=== PATIENT | male | born 1935 | race Caucasian/White ===

== ENCOUNTER 2016-07-02 04:43 | Inpatient (IN) | payer OTHER, MEDICARE ==
[~2016-07-02] VITALS: Ht 182.9 cm; Wt 95.0 kg
[2016-07-02] VITALS (20 sets, daily range): BP systolic 122–176; BP diastolic 78–98; PULSE 92–116; RESP 18–32; TEMP 97.2–98.8; O2SAT 91–96
[~2016-07-02 04:43] MED LIST: 1-ME1LIQ PO; ALBU0.086 INH; ASPI1TAB7 PO; ATOR20TA42 PO; CO-QCAP; FURO20TA PO; I-VITAB2; IBUP-1116 PO; OMEG5CAP PO; TAB-TAB PO; TEST200I13 IM; VITA-13 PO; VITA100020 PO
[2016-07-02] MEDS ORDERED: FUROSEMIDE 40 MG/4 ML VIAL IVP ONE (05:00)
[2016-07-02] MEDS ORDERED: SODIUM CHLORIDE 0.9% FLUSH 10 ML FLUSH IVF PRN (05:00)
[2016-07-02] MEDS ORDERED: methylPREDNISolone SOD SUCC 125 MG/2 ML VIAL IVP ONE (05:00)
[2016-07-02] MEDS: RESP: ALBUTEROL 2.5 MG/IPRATROPIUM 0.5 MG NEB (SCH) INH (05:08)
[2016-07-02] MEDS ORDERED: CO-QCAP PO (05:13)
[2016-07-02] MEDS ORDERED: FURO20TA PO (05:13)
[2016-07-02] MEDS ORDERED: AMLO10TA2 PO (05:13)
[2016-07-02] MEDS ORDERED: VITA100021 SL (05:13)
[2016-07-02] MEDS ORDERED: ASPI1TAB69 PO (05:13)
[2016-07-02] MEDS ORDERED: I-VITAB2 (05:13)
[2016-07-02] MEDS ORDERED: ATOR20TA15 PO (05:13)
[2016-07-02] MEDS ORDERED: TEST200I12 IM (05:13)
[2016-07-02] MEDS ORDERED: OMEG5CAP PO (05:13)
[2016-07-02] MEDS ORDERED: IBUP800T23 PO (05:13)
[2016-07-02] MEDS ORDERED: MULTTAB23 (05:13)
[2016-07-02] MEDS ORDERED: VITA200012 PO (05:13)
--- NOTE | 2016-07-02 05:24 | RADRPT ---
EXAM DATE/TIME: 07/02/2016 04:56 [place] COMPARISON: No previous studies available for comparison. INDICATIONS : Shortness of breath. MEDICAL HISTORY : Congestive heart failure. SURGICAL HISTORY : None. ENCOUNTER: Initial ACUITY: 1 day PAIN SCORE: 0/10 LOCATION: chest FINDINGS: Portable AP view of the chest demonstrates a normal-sized cardiac silhouette with calcification of th e aorta. There is airspace consolidation in the lower lung zones bilaterally. No pneumothorax or defi nite pleural effusion is seen. Bones and soft tissues demonstrate no acute finding. There are degener ative changes of the thoracic spine. CONCLUSION: Bilateral lower lung zone airspace consolidation. Although this appearance is nonspecific, pulmonary edema could have this appearance in the appropriate clinical setting. Raoul Gan MD on July 02, 2016 at 5:21 Board Certified Radiologist. This report was verified electronically.
[2016-07-02 05:25] LABS: BLOOD GAS BASE EXCESS -3.7 mmol/L (-2-2); BLOOD GAS CARBOXYHEMOGLOBIN 1.5 % (0-4); BLOOD GAS HCO3 20 mmol/L (22-26); BLOOD GAS METHEMOGLOBIN 0.8 % (0-2); BLOOD GAS O2 HGB SATURATION 91 % (90-100); BLOOD GAS OXYGEN CONTENT 21.1 Vol % (12.0-20.0); BLOOD GAS PCO2 34 mmHg (38-42); BLOOD GAS PO2 67 mmHG (61-120); BLOOD GAS TOTAL HGB 16.6 G/DL (12.0-16.0); CRITICAL VALUE NO; OXYGEN DEVICE BiPAP; TEMP CORR TO 98.6
[2016-07-02 05:26] LABS: DRAW SITE RT RADIAL; FIO2 40 %; NUMBER OF ARTERIAL PUNCTURES 1; STAT YES; VENT SETTINGS IPAP12/EPAP6
[2016-07-02 05:36] LABS: AUTOMATED NEUTROPHIL # 5.3 TH/MM3 (1.8-7.7); BASOPHIL # 0.1 TH/MM3 (0-0.2); BASOPHIL % 0.8 % (0.0-2.0); EOSINOPHIL # 0.4 TH/MM3 (0-0.4); EOSINOPHIL % 4.4 % (0.0-4.0); HEMATOCRIT 50.3 % (39.0-51.0); HEMO FLAGS DIFF FINAL; LYMPH % 24.3 % (9.0-44.0); LYMPHOCYTE # 2.1 TH/MM3 (1.0-4.8); MEAN CELL VOLUME 92.9 FL (80.0-100.0); MEAN CORPUSCULAR HEMOGLOBIN 31.9 PG (27.0-34.0); MEAN CORPUSCULAR HGB CONC 34.3 % (32.0-36.0); MONO % 9.7 % (0.0-8.0); NEUT % 60.8 % (16.0-70.0); PLATELET COUNT 154 TH/MM3 (150-450); RED BLOOD COUNT 5.41 MIL/MM3 (4.50-5.90); RED CELL DISTRIBUTION WIDTH 15.4 % (11.6-17.2); WHITE BLOOD COUNT 8.7 TH/MM3 (4.0-11.0)
[2016-07-02 05:48] LABS: APTT (PATIENT) 35.9 SEC (24.3-30.1); PROTHROMBIN TIME - PATIENT 11.5 SEC (9.8-11.6)
[2016-07-02 05:57] LABS: ANION GAP 11 MEQ/L (5-15); BICARBONATE 21.7 MEQ/L (21.0-32.0); BLOOD UREA NITROGEN 15 MG/DL (7-18); CHLORIDE 108 MEQ/L (98-107); GLOMERULAR FILTRATION RATE 66 ML/MIN (>89); POTASSIUM 3.4 MEQ/L (3.5-5.1); SODIUM (NA) 141 MEQ/L (136-145)
[2016-07-02 06:00] LABS: CREATINE KINASE 154 U/L (39-308)
[2016-07-02 06:12] LABS: CKMB 2.8 NG/ML (0.5-3.6)
--- NOTE | 2016-07-02 06:30 | PD ---
HPI Chief Complaint: Respiratory Distress Time Seen by Provider: 04:57 Travel History International Travel<30 days: No Contact w/Intl Traveler<30days: No Traveled to known affect area: No History of Present Illness HPI 81yo M with PMH of CHF, COPD and rheumatic heart disease presents to the ED with c/o acute sob since 4am today. Pt arrived and was hypoxic in the 80s on 2 L NC and placed immediately on a BIPAP. Pt felt better after BIPAP. Denies any fever, chest pain, n/v, abdominal pain, weakness or numbness. Pt's credit collector is Dr. North. PFSH Past Medical History Cardiovascular Problems: Yes (needs mitral valve replaced) High Cholesterol: Yes Congestive Heart Failure: Yes COPD: Yes Diminished Hearing: Yes Hypertension: Yes Inguinal Hernia: Yes (hernia repair) Medical other: Yes (rheumatic fever) Immunizations Current: Yes Social History Alcohol Use: Yes (Daily) Tobacco Use: No Substance Use: No Allergies-Medications (Allergen,Severity, Reaction): Coded Allergies: No Known Allergies (Unverified , 07/02/16) Reported Meds & Prescriptions Reported Meds & Active Scripts Active Reported Ciprofloxacin (Ciprofloxacin HCl) 500 Mg Tab 500 Mg PO BID I-Elva (Multiple Vitamins W/ Minerals) 1 Tab Tab Co-Q 10 [place]-3 Fish Oil (Coenzyme O01-Qpsl Oil-Vitamin) 1 Cap Vitamin D3 (Cholecalciferol) 2,000 Unit Tab 2,000 Units PO DAILY Vitamin B-12 (Cyanocobalamin) 1,000 Mcg Subl 1,000 Mcg SL DAILY Testosterone Cypionate Inj (Testosterone Cypionate) 200 Mg/Ml Inj 200 Mg IM Q10D Multi For Him 50+ (Multiple Vitamins W/ Minerals) 1 Tab Tab Furosemide 20 Mg Tab 20 Mg PO DAILY Fish Oil 1200 mg ([place]-3 Fatty Acids) 1 Cap Cap 1,200 Mg PO DAILY Atorvastatin (Atorvastatin Calcium) 20 Mg Tab 20 Mg PO HS Aspirin 81 Mg Tabdr 81 Mg PO DAILY Amlodipine (Amlodipine Besylate) 10 Mg Tab 10 Mg PO DAILY Review of Systems Except as stated in HPI: all other systems reviewed are Neg Physical Exam Narrative GENERAL: 81yo M in moderate distress. SKIN: Focused skin assessment warm/dry. HEAD: Atraumatic. Normocephalic. EYES: Pupils equal and round. No scleral icterus. No injection or drainage. ENT: No nasal bleeding or discharge. Mucous membranes pink and moist. NECK: Trachea midline. No JVD. CARDIOVASCULAR: Regular rate and rhythm. No murmur appreciated. RESPIRATORY: + accessory muscle use. Coarse breath sounds bilaterally. GASTROINTESTINAL: Abdomen soft, non-tender, nondistended. Hepatic and splenic margins not palpable. MUSCULOSKELETAL: No obvious deformities. No clubbing. No cyanosis. +Lower ext edema. NEUROLOGICAL: Awake and alert. No obvious cranial nerve deficits. Motor grossly within normal limits. Normal speech. PSYCHIATRIC: Appropriate mood and affect; insight and judgment normal. Data Data Last Documented VS Vital Signs Date Time Temp Pulse Resp B/P Pulse Ox O2 Delivery O2 Flow Rate FiO2 07/02/16 05:15 BiPAP 07/02/16 05:11 93 40 07/02/16 04:51 3 07/02/16 04:51 97.2 113 26 173/98 Orders Complete Blood Count With Diff (07/02/16 04:57) Basic Metabolic Panel (Bmp) (07/02/16 04:57) B-Type Natriuretic Peptide (07/02/16 04:57) Act Partial Throm Time (Ptt) (07/02/16 04:57) Prothrombin Time / Inr (Pt) (07/02/16 04:57) Ckmb (Isoenzyme) Profile (07/02/16 04:57) Troponin I (07/02/16 04:57) Arterial Blood Gas (Abg) (07/02/16 04:57) Influenzae A/B Antigen (07/02/16 04:57) Blood Culture (07/02/16 04:57) Iv Access Insert/Monitor (07/02/16 04:57) Ecg Monitoring (07/02/16 04:57) Oximetry (07/02/16 04:57) Oxygen Administration (07/02/16 04:57) Chest, Single Ap (07/02/16 04:57) Sodium Chloride 0.9% Flush (Ns Flush) (07/02/16 05:00) Furosemide Inj (Lasix Inj) (07/02/16 05:00) Methylprednisolone So Succ Inj (Solumedr (07/02/16 05:00) Albuterol-Ipratropium Neb (Duoneb Neb) (07/02/16 05:00) Resp Bipap / Cpap Non Invas Vt (07/02/16 04:57) CKMB (07/02/16 04:45) CKMB% (07/02/16 04:45) Admit Order (Ed Use Only) (07/02/16 06:34) Admit To Inpatient (07/02/16 ) Vital Signs (Adult) Q4H (07/02/16 06:32) Activity Oob With Assistance (07/02/16 06:32) Corset Maker / Telemetry .CONTINUOUS (07/02/16 06:32) Intake + Output BRENNEN.QSHIFT (07/02/16 06:32) Diet Heart Healthy (07/02/16 Breakfast) Sodium Chloride 0.9% Flush (Ns Flush) (07/02/16 06:45) Sodium Chloride 0.9% Flush (Ns Flush) (07/02/16 09:00) Basic Metabolic Panel (Bmp) (07/03/16 06:00) Complete Blood Count With Diff (07/03/16 06:00) Creatine Kinase (Cpk) (07/02/16 07:00) Creatine Kinase (Cpk) (07/02/16 13:00) Troponin I (07/02/16 07:00) Troponin I (07/02/16 13:00) Electrocardiogram (07/02/16 07:00) Pt Request For Service (07/02/16 06:32) Case Management Consult (07/02/16 06:32) Heparin Inj (Heparin Inj) (07/02/16 08:00) Naloxone Inj (Narcan Inj) (07/02/16 06:45) Inpatient Certification (07/02/16 ) Labs Laboratory Tests Test 07/02/16 07/02/16 07/02/16 01:02 04:45 05:18 White Blood Count 8.7 TH/MM3 Red Blood Count 5.41 MIL/MM3 Hemoglobin 17.2 GM/DL Hematocrit 50.3 % Mean Corpuscular Volume 92.9 FL Mean Corpuscular Hemoglobin 31.9 PG Mean Corpuscular Hemoglobin 34.3 % Concent Red Cell Distribution Width 15.4 % Platelet Count 154 TH/MM3 Mean Platelet Volume 7.8 FL Neutrophils (%) (Auto) 60.8 % Lymphocytes (%) (Auto) 24.3 % Monocytes (%) (Auto) 9.7 % Eosinophils (%) (Auto) 4.4 % Basophils (%) (Auto) 0.8 % Neutrophils # (Auto) 5.3 TH/MM3 Lymphocytes # (Auto) 2.1 TH/MM3 Monocytes # (Auto) 0.8 TH/MM3 Eosinophils # (Auto) 0.4 TH/MM3 Basophils # (Auto) 0.1 TH/MM3 CBC Comment DIFF FINAL Differential Comment B-Type Natriuretic Peptide 381 PG/ML Prothrombin Time 11.5 SEC Prothromb Time International 1.0 RATIO Ratio Activated Partial 35.9 SEC Thromboplast Time Sodium Level 141 MEQ/L Potassium Level 3.4 MEQ/L Chloride Level 108 MEQ/L Carbon Dioxide Level 21.7 MEQ/L Anion Gap 11 MEQ/L Blood Urea Nitrogen 15 MG/DL Creatinine 1.07 MG/DL Estimat Glomerular Filtration 66 ML/MIN Rate Random Glucose 88 MG/DL Calcium Level 8.8 MG/DL Total Creatine Kinase 154 U/L Creatine Kinase MB 2.8 NG/ML Troponin I LESS THAN 0.02 NG/ML Blood Gas Puncture Site RT RADIAL Blood Gas Patient Temperature 98.6 Blood Gas HCO3 20 mmol/L Blood Gas Base Excess -3.7 mmol/L Blood Gas Oxygen Saturation 91 % Arterial Blood pH 7.39 Arterial Blood Partial 34 mmHg Pressure CO2 Arterial Blood Partial 67 mmHG Pressure O2 Arterial Blood Oxygen Content 21.1 Vol % Arterial Blood 1.5 % Carboxyhemoglobin Arterial Blood Methemoglobin 0.8 % Blood Gas Hemoglobin 16.6 G/DL Oxygen Delivery Device BiPAP Blood Gas Ventilator Setting IPAP12/EPAP6 Blood Gas Inspired Oxygen 40 % MDM Medical Decision Making Medical Screen Exam Complete: Yes Emergency Medical Condition: Yes Differential Diagnosis Acute pulmonary edema vs. COPD exacerbation vs. Pneumonia vs. ACS Narrative Course 81yo M with acute onset of sob today. Crackles on exam with bilateral lower ext edema. Impression is acute pulmonary edema. BNP 381. No leukocytosis. CXR showed pulmonary edema. Pt was immediately placed on BIPAP and has been doing well on BIPAP. Discussed with Dr. Chen and pt will be accepted to her service in the ICU. Critical Care Narrative Aggregate critical care time was 40 minutes. Time to perform other separately billable procedures was not included in the critical care time. My time did not include minutes spent treating any other patients simultaneously or on activities that did not directly contribute to the patient's treatment. The services I provided to this patient were to treat and/or prevent clinically significant deterioration that could result in: cardiovascular collapse or . I provided critical care services requiring my management, as noted below: Chart data review, documentation time, medication orders and management, vital sign assessments/reviewing monitor data, ordering and reviewing lab tests, ordering and interpreting/reviewing x- rays and diagnostic studies, care of the patient and discussion of the patient with the admitting physicians. Diagnosis Primary Impression: Acute pulmonary edema Admitting Information Admitting Physician Requests: Admit Scripts Metoprolol Tartrate 25 Mg Tab12.5 Mg PO Q12HR 30 Days Ref 0 Prov:Bhavin Agudelo MD 07/04/16 Potassium Chloride ER 10 Meq Cap10 Meq PO DAILY #30 CAP Ref 0 Prov:Bhavin Agudelo MD 07/04/16 Danielle Ortiz DO Jul 02, 2016 06:30
[2016-07-02] MEDS ORDERED: NALOXONE HCL 0.4 MG/ML AMP IV PRN (06:45)
[2016-07-02] MEDS ORDERED: POTASSIUM CHLORIDE 20 MEQ CONTROLLED RELEASE TAB PO ONE (06:45)
[2016-07-02] MEDS ORDERED: SODIUM CHLORIDE 0.9% FLUSH 10 ML FLUSH IV FLUSH PRN (06:45)
--- NOTE | 2016-07-02 08:02 | HHI.HP ---
[facility] Primary Care Physician Rena Lynne MD Admission Diagnosis CHF exacerbation Diagnoses: (1) CHF exacerbation Diagnosis: Principal Chief Complaint: sob Travel History International Travel<30 Days: No Contact w/Intl Traveler <30 Da: No Traveled to Known Affected Are: No History of Present Illness patient is a 81 y/o male with history of CHF, hypertension, rheumatic fever , COPD who presented to ER with sob. he says that he's had sob over the past one week which he initially related to common cold. he says that he woke up in the morning with worsening sob. he denies any productive cough, chest pain, fever or chills. but he reports ten-pound weight gain over the past two weeks.he says that he's being worked up for ' a leaky valve'. at the time of presentation to ER he was started on BiPaP. at the time of my evaluation he was in no acute distress, stating that his sob had already improved. Review of Systems Constitutional: DENIES: Fever, Weight loss, Chills, Night Sweats Eyes: DENIES: Blurred vision, Diplopia, Vision loss, Double Vision Ears, nose, mouth, throat: DENIES: Tinnitus, Vertigo, Throat pain, Epistaxis Respiratory: COMPLAINS OF: Shortness of breath, DENIES: Apneas, Cough, Snoring , Wheezing, Hemoptysis, Sputum production Cardiovascular: DENIES: Chest pain, Palpitations, Syncope, Dyspnea on Exertion , PND, Lower Extremity Edema, Orthopnea, Claudication Gastrointestinal: DENIES: Abdominal pain, Black stools, Bloody stools, Constipation, Diarrhea, Nausea, Vomiting, Difficulty Swallowing, Anorexia Genitourinary: DENIES: Urinary frequency, Urgency, Hematuria, Dysuria Musculoskeletal: DENIES: Joint pain, Muscle aches, Stiffness, Joint Swelling Integumentary: DENIES: Rash Neurologic: DENIES: Abnormal gait, Headache, Localized weakness, Paresthesias, Seizures, Speech Problems, Tremor, Poor Balance Psychiatric: DENIES: Anxiety, Confusion, Mood changes, Depression, Hallucinations, Agitation, Suicidal Ideation, Homicidal Ideation, Delusions Past Family Social History Past Medical History rheumatic fever hypertension CHF dyslipidemia COPD Past Surgical History foot surgery cervical spine surgery Reported Medications Ibuprofen 800 Mg Tab 800 Mg PO BID PRN I-Elva (Multiple Vitamins W/ Minerals) 1 Tab Tab Co-Q 10 [place]-3 Fish Oil (Coenzyme U45-Ydqu Oil-Vitamin) 1 Cap Vitamin D3 (Cholecalciferol) 2,000 Unit Tab 2,000 Units PO DAILY Vitamin B-12 (Cyanocobalamin) 1,000 Mcg Subl 1,000 Mcg SL DAILY Testosterone Cypionate Inj (Testosterone Cypionate) 200 Mg/Ml Inj 200 Mg IM Q10D Multi For Him 50+ (Multiple Vitamins W/ Minerals) 1 Tab Tab Furosemide 20 Mg Tab 20 Mg PO DAILY Fish Oil 1200 mg ([place]-3 Fatty Acids) 1 Cap Cap 1,200 Mg PO DAILY Atorvastatin (Atorvastatin Calcium) 20 Mg Tab 20 Mg PO HS Aspirin 81 Mg Tabdr 81 Mg PO DAILY Amlodipine (Amlodipine Besylate) 10 Mg Tab 10 Mg PO DAILY Allergies: Coded Allergies: No Known Allergies (Unverified , 07/02/16) Active Ordered Medications Current Medications Sodium Chloride (NS Flush) 2 ml UNSCH PRN IVF FLUSH AFTER USING IV ACCESS Last administered on 07/02/16 06:04; Start 07/02/16 at 05:00; Stop 07/02/16 at 06:37 ; Status DC Furosemide (Lasix Inj) 40 mg ONCE ONCE IVP Last administered on 07/02/16 06: 04; Start 07/02/16 at 05:00; Stop 07/02/16 at 05:01; Status DC Methylprednisolone Sodium Succinate (SoluMEDROL INJ) 125 mg ONCE ONCE IVP Last administered on 07/02/16 06:04; Start 07/02/16 at 05:00; Stop 07/02/16 at 05:01; Status DC Albuterol/ Ipratropium (Duoneb Neb) 1 ampule Q15M INH Last administered on 07/02 05:08; Start 07/02/16 at 05:00; Stop 07/02/16 at 05:31; Status DC Sodium Chloride (NS Flush) 2 ml UNSCH PRN IV FLUSH FLUSH AFTER USING IV ACCESS ; Start 07/02/16 at 06:45 Sodium Chloride (NS Flush) 2 ml BID IV FLUSH ; Start 07/02/16 at 09:00 Heparin Sodium (Porcine) (Heparin Inj) 5,000 units Q8H SQ ; Start 07/02/16 at 08 :00 Naloxone HCl (Narcan Inj) 0.4 mg UNSCH PRN IV SEE LABEL COMMENTS; Start at 06:45 Furosemide (Lasix Inj) 40 mg BID@09,18 IV PUSH ; Start 07/02/16 at 09:00 Potassium Chloride (KCl) 40 meq ONCE ONCE PO ; Start 07/02/16 at 06:45; Stop at 06:46; Status DC Family History heart disease in father and mother. Social History drinks daily- quit smoking years ago. Physical Exam Vital Signs Vital Signs Date Time Temp Pulse Resp B/P Pulse Ox O2 Delivery O2 Flow Rate FiO2 07/02/16 05:15 BiPAP 07/02/16 05:11 93 40 07/02/16 04:51 91 Nasal Cannula 3 07/02/16 04:51 97.2 113 26 173/98 93 BiPAP 07/02/16 04:47 116 32 176/94 91 Physical Exam GENERAL: This is a well-nourished, well-developed patient, in no apparent distress. SKIN: No rashes, ecchymoses or lesions. Cool and dry. HEAD: Atraumatic. Normocephalic. No temporal or scalp tenderness. EYES: Pupils equal round and reactive. Extraocular motions intact. No scleral icterus. No injection or drainage. ENT: Nose without bleeding, purulent drainage or septal hematoma. Throat without erythema, tonsillar hypertrophy or exudate. Uvula midline. Airway patent. NECK: Trachea midline. No JVD or lymphadenopathy. Supple, nontender, no meningeal signs. CARDIOVASCULAR: Regular rate and rhythm without murmurs, gallops, or rubs. RESPIRATORY: diminished air entry in bases. GASTROINTESTINAL: Abdomen soft, non-tender, nondistended. No hepato-splenomegaly , or palpable masses. No guarding. MUSCULOSKELETAL: Extremities without clubbing, cyanosis, or edema. No joint tenderness, effusion, or edema noted. No calf tenderness. Negative Homans sign bilaterally. NEUROLOGICAL: Awake and alert. Cranial nerves II through XII intact. Motor and sensory grossly within normal limits. Five out of 5 muscle strength in all muscle groups. Normal speech. Laboratory Laboratory Tests Test 307/02/16 07/02/16 01:02 04:45 05:18 White Blood Count 8.7 Red Blood Count 5.41 Hemoglobin 17.2 Hematocrit 50.3 Mean Corpuscular Volume 92.9 Mean Corpuscular Hemoglobin 31.9 Mean Corpuscular Hemoglobin 34.3 Concent Red Cell Distribution Width 15.4 Platelet Count 154 Mean Platelet Volume 7.8 Neutrophils (%) (Auto) 60.8 Lymphocytes (%) (Auto) 24.3 Monocytes (%) (Auto) 9.7 Eosinophils (%) (Auto) 4.4 Basophils (%) (Auto) 0.8 Neutrophils # (Auto) 5.3 Lymphocytes # (Auto) 2.1 Monocytes # (Auto) 0.8 Eosinophils # (Auto) 0.4 Basophils # (Auto) 0.1 CBC Comment DIFF FINAL Differential Comment B-Type Natriuretic Peptide 381 Prothrombin Time 11.5 Prothromb Time International 1.0 Ratio Activated Partial 35.9 Thromboplast Time Sodium Level 141 Potassium Level 3.4 Chloride Level 108 Carbon Dioxide Level 21.7 Anion Gap 11 Blood Urea Nitrogen 15 Creatinine 1.07 Estimat Glomerular Filtration 66 Rate Random Glucose 88 Calcium Level 8.8 Total Creatine Kinase 154 Creatine Kinase MB 2.8 Troponin I LESS THAN 0.02 Blood Gas Puncture Site RT RADIAL Blood Gas Patient Temperature 98.6 Blood Gas HCO3 20 Blood Gas Base Excess -3.7 Blood Gas Oxygen Saturation 91 Arterial Blood pH 7.39 Arterial Blood Partial 34 Pressure CO2 Arterial Blood Partial 67 Pressure O2 Arterial Blood Oxygen Content 21.1 Arterial Blood 1.5 Carboxyhemoglobin Arterial Blood Methemoglobin 0.8 Blood Gas Hemoglobin 16.6 Oxygen Delivery Device BiPAP Blood Gas Ventilator Setting IPAP12/EPAP6 Blood Gas Inspired Oxygen 40 Date/Time Procedure Status Source Growth 07/02/16 06:00 Influenza Types A,B Antigen (DEVI) Ordered Nasal Aspirate Pending 07/02/16 05:20 Aerobic Blood Culture Received Blood Peripheral Pending 07/02/16 05:20 Anaerobic Blood Culture Received Blood Peripheral Pending Result Diagram: 07/02/16 0102 07/02/16 0445 Imaging Last Impressions Chest X-Ray 07/02/16 0457 Signed Impressions: Service Date/Time: Saturday, July 02, 2016 04:56 - CONCLUSION: Bilateral lower lung zone airspace consolidation. Although this appearance is nonspecific, pulmonary edema could have this appearance in the appropriate clinical setting. Raoul Gan MD Assessment and Plan Assessment and Plan A/P - acute on chronic CHF continue with IV lasix- I/O monitoring- had an echo two weeks ago- check serial cardiac enzymes- cardiology consulted keep on oxygen to keep O2 sat > 90% -COPD; neb treatment as needed -hypertension/ dyslipidemia; resume home meds; amlodipine/ statin -DVT prophylaxis with subq heparin Discussed Condition With the patient and the family. Physician Certification 2 Midnight Certification Type: Admission for Inpatient Services Order for Inpatient Services The services are ordered in accordance with Medicare regulations or non- Medicare payer requirements, as applicable. In the case of services not specified as inpatient-only, they are appropriately provided as inpatient services in accordance with the 2-midnight benchmark. Estimated LOS (days): 2 days is the estimated time the patient will need to remain in the hospital, assuming treatment plan goals are met and no additional complications. Post-Hospital Plan: Home Health Problem Qualifiers (1) CHF exacerbation: Qualified Code: I50.9 - Acute on chronic congestive heart failure, unspecified congestive heart failure type Bhavin Agudelo MD Jul 02, 2016 08:02
[2016-07-02] MEDS ORDERED: ENALAPRILAT 1.25 MG/ML VIAL IV PUSH PRN (08:15)
[2016-07-02] MEDS ORDERED: RESP: ALBUTEROL 2.5 MG/IPRATROPIUM 0.5 MG NEB (PRN) NEB (08:15)
[2016-07-02] MEDS: HEPARIN SODIUM - SQ 10,000 UNITS/ML VIAL SQ SCH ×3 (08:52→23:45)
[2016-07-02] MEDS: SODIUM CHLORIDE 0.9% FLUSH 10 ML FLUSH IV FLUSH SCH ×2 (09:52→20:48)
[2016-07-02] MEDS: ASPIRIN EC 81 MG TABEC PO SCH (09:53)
[2016-07-02] MEDS: POTASSIUM CHLORIDE 20 MEQ CONTROLLED RELEASE TAB PO SCH ×2 (09:53→20:48)
[2016-07-02] MEDS: FUROSEMIDE 40 MG/4 ML VIAL IV PUSH SCH ×2 (09:54→17:21)
--- NOTE | 2016-07-02 11:06 | MB ---
cc: NAOMIE JOHNSON MD DATE OF CONSULTATION 07/02/2016 REASON FOR CONSULTATION CHF HISTORY OF PRESENT ILLNESS Mr. Hutchinson is an 81-year-old patient who does have a history of hypertension, hyperlipidemia and aortic stenosis. He was actually seen by me in the office yesterday after a recent echocardiogram which showed rapid progression of his aortic stenosis. His mean gradient in 2014 was 10, in December 2015 was 25 and 24 on June 16, 2016 was up to 37 mmHg. He has noted that he has had progressive symptoms and one month ago was able to walk four miles a day. Over the last month, he is now having difficulties walking in the grocery store. He has also had sinus infection which apparently has been difficult to treat. He was subsequently referred to Dr. Cuevas for an AVR workup. Last night, the patient reports that he woke up at 04:00 a.m. with profound shortness of breath and subsequently came into the emergency room. He was found to be in mild heart failure and has been diuresed. Cardiology was subsequently consulted. CLINICAL HISTORY Significant for: 1. Hypertension 2. Hyperlipidemia 3. Carotid artery plaque 4. Aortic stenosis 5. LVH 6. Mitral regurgitation OUTPATIENT MEDICATIONS Include: 1. Aspirin 2. Amlodipine 10 mg daily 3. Atorvastatin 20 mg a day 4. Lasix 20 mg a day PAST SURGICAL HISTORY Includes: 1. Neck surgery 2. Renal transplantation SOCIAL HISTORY The patient does have occasional alcohol. He is a nonsmoker. REVIEW OF SYSTEMS The patient has had some nasal drainage, other than this and what is mentioned in the HPI, all 12 systems are negative. PHYSICAL EXAM On physical examination, the initial vital signs showed a temperature of 97.2, heart rate of 113, respiratory rate of 26 and a blood pressure of 173/98. GENERAL: He is an overweight man who is in no apparent distress. NECK: His neck is free from JVD. LUNGS: The lungs are bit decreased, but clear to auscultation. CARDIOVASCULAR: On examination, he is tachycardiac and there is a systolic aortic stenosis murmur. Echocardiogram from 06/16/16 shows a normal LV function with an EF of 52%. There was a mild LV dilation with it being 59 mm in diastole. There was [id number] mitral regurgitation. LABORATORY VALUES Significant for a troponin of less 0.02 and BNP of 381. His white count was 8.7. Chest x-ray shows bilateral air space consolidation which is felt to be nonspecific and could represent pulmonary edema. IMPRESSION Acute diastolic CHF likely from his aortic stenosis. I do agree with aggressive medical management at this point. A Beta buck will be added. Severe aortic stenosis - The patient does meet the criteria for aortic valve replacement at this point. He, however, will need to be optimized and specifically will need to have his sinus infection addressed as he would be a suboptimal candidate at this time with an infection. Sinus infection - The patient does follow with Dr. Monson will be consulted as the patient's family is indicating to me that he was going to request a CT of the sinuses to further clarify this process. Naomie Johnson M.D. PAVEL/DJAbida /9:49 AM /10:49 AM JARRET
[2016-07-02] MEDS ORDERED: CIPR500T2 PO (11:17)
[2016-07-02] MEDS: CIPROFLOXACIN 500 MG TAB PO SCH ×2 (15:38→20:48)
[2016-07-02] MEDS: guaiFENesin E.R. 600 MG TAB PO PRN (15:40)
--- NOTE | 2016-07-02 16:22 | EKG ---
Date Performed: 07/02/2016 Time Performed: 04:47:49 PTAGE: 81 years EKG: SINUS TACHYCARDIA MARKED LEFT AXIS DEVIATION LEFT BUNDLE BRANCH BLOCK ABNORMAL ECG INTERPRE TATION BASED ON A DEFAULT AGE OF 40 YEARS NO PREVIOUS TRACING DOCTOR: Jack Nguyen Interpretating Date/Time 07/02/2016 16:19:57
[2016-07-02] MEDS: METOPROLOL TARTRATE 25 MG TAB PO SCH (20:48)
[2016-07-02] MEDS: ATORVASTATIN 20 MG TAB PO SCH (20:48)
[2016-07-02] MEDS ORDERED: CIPROFLOXACIN 500 MG TAB PO SCH (21:00)
[2016-07-03] VITALS (26 sets, daily range): BP systolic 95–132; BP diastolic 58–86; PULSE 64–105; RESP 17–18; TEMP 97.5–98.6; O2SAT 93–96
[2016-07-03 06:23] LABS: BICARBONATE 26.7 MEQ/L (21.0-32.0); POTASSIUM 3.9 MEQ/L (3.5-5.1)
[2016-07-03 07:00] LABS: AUTOMATED NEUTROPHIL # 5.6 TH/MM3 (1.8-7.7); BASOPHIL % 0.1 % (0.0-2.0); HEMATOCRIT 47.6 % (39.0-51.0); HEMO FLAGS DIFF FINAL; LYMPH % 10.1 % (9.0-44.0); LYMPHOCYTE # 0.7 TH/MM3 (1.0-4.8); MEAN CELL VOLUME 93.7 FL (80.0-100.0); MEAN CORPUSCULAR HEMOGLOBIN 31.9 PG (27.0-34.0); MEAN CORPUSCULAR HGB CONC 34.1 % (32.0-36.0); MONO % 7.6 % (0.0-8.0); NEUT % 82.2 % (16.0-70.0); PLATELET COUNT 169 TH/MM3 (150-450); RED BLOOD COUNT 5.08 MIL/MM3 (4.50-5.90); WHITE BLOOD COUNT 6.8 TH/MM3 (4.0-11.0)
--- NOTE | 2016-07-03 08:00 | HHI.PR ---
Subjective Remarks looks and feels much better today. sob has much improved and now off oxygen. d/w the RN and no acute issues over night. Objective Vitals Vital Signs Date Time Temp Pulse Resp B/P Pulse Ox O2 Delivery O2 Flow Rate FiO2 07/03/16 06:00 86 07/03/16 05:00 84 07/03/16 04:00 90 07/03/16 04:00 98.2 90 18 95/58 94 07/03/16 04:00 Nasal Cannula 3.00 07/03/16 03:00 87 07/03/16 02:00 91 07/03/16 01:00 88 07/03/16 00:00 98.6 87 18 130/86 95 07/03/16 00:00 87 07/03/16 00:00 Nasal Cannula 3.00 07/02/16 23:00 92 07/02/16 22:00 95 07/02/16 21:15 96 Nasal Cannula 2.00 07/02/16 21:00 94 07/02/16 20:00 98.1 97 20 137/86 95 07/02/16 20:00 Nasal Cannula 3.00 07/02/16 20:00 97 07/02/16 18:00 96 07/02/16 17:00 110 07/02/16 16:00 98.7 103 18 130/80 93 07/02/16 16:00 98 07/02/16 15:00 102 07/02/16 14:00 96 07/02/16 13:00 116 07/02/16 12:00 98.8 103 18 122/82 94 07/02/16 12:00 103 07/02/16 11:00 100 07/02/16 10:30 109 07/02/16 10:15 98.8 108 22 156/92 95 07/02/16 08:24 94 Venturi Mask 6.00 40 I/O 07/02/16 07/02/16 07/02/16 07/03/16 07/03/16 07/03/16 07:00 15:00 23:00 07:00 15:00 23:00 Intake Total 720 ml 242 ml Output Total 1000 ml 950 ml Balance -280 ml -708 ml Intake Oral 720 ml 240 ml IV Total 2 ml Output Urine Total 1000 ml 950 ml # Bowel Movements 1 0 Result Diagram: 07/03/16 0456 07/03/16 0456 Imaging Last Impressions Chest X-Ray 07/02/16456 Signed Impressions: Service Date/Time: Saturday, July 02, 2016 04:56 - CONCLUSION: Bilateral lower lung zone airspace consolidation. Although this appearance is nonspecific, pulmonary edema could have this appearance in the appropriate clinical setting. Raoul Gan MD Objective Remarks GENERAL: This is a well-nourished, well-developed patient, in no apparent distress. CARDIOVASCULAR: Regular rate and regular rhythm without murmurs, gallops, or rubs. RESPIRATORY: better air entry bilaterally. GASTROINTESTINAL: Abdomen soft, non-tender, nondistended. Normal, active bowel sounds MUSCULOSKELETAL: Extremities without clubbing, cyanosis, or edema. NEURO: Alert & Oriented x4 to person, place, time, situation. Moves all ext x4 Procedures none Medications and IVs Current Medications Sodium Chloride (NS Flush) 2 ml UNSCH PRN IVF FLUSH AFTER USING IV ACCESS Last administered on 07/02/16 06:04; Start 07/02/16 at 05:00; Stop 07/02/16 at 06:37 ; Status DC Furosemide (Lasix Inj) 40 mg ONCE ONCE IVP Last administered on 07/02/16 06: 04; Start 07/02/16 at 05:00; Stop 07/02/16 at 05:01; Status DC Methylprednisolone Sodium Succinate (SoluMEDROL INJ) 125 mg ONCE ONCE IVP Last administered on 07/02/16 06:04; Start 07/02/16 at 05:00; Stop 07/02/16 at 05:01; Status DC Albuterol/ Ipratropium (Duoneb Neb) 1 ampule Q15M INH Last administered on 07/02 05:08; Start 07/02/16 at 05:00; Stop 07/02/16 at 05:31; Status DC Sodium Chloride (NS Flush) 2 ml UNSCH PRN IV FLUSH FLUSH AFTER USING IV ACCESS ; Start 07/02/16 at 06:45 Sodium Chloride (NS Flush) 2 ml BID IV FLUSH Last administered on 07/02/16 20: 48; Start 07/02/16 at 09:00 Heparin Sodium (Porcine) (Heparin Inj) 5,000 units Q8H SQ Last administered on 07/02/16 23:45; Start 07/02/16 at 08:00 Naloxone HCl (Narcan Inj) 0.4 mg UNSCH PRN IV SEE LABEL COMMENTS; Start at 06:45 Furosemide (Lasix Inj) 40 mg BID@09,18 IV PUSH Last administered on 07/02/16 17:21; Start 07/02/16 at 09:00 Potassium Chloride (KCl) 40 meq ONCE ONCE PO Last administered on 07/02/16 08 :55; Start 07/02/16 at 06:45; Stop 07/02/16 at 06:46; Status DC Albuterol/ Ipratropium (Duoneb Neb) 1 ampule Q4HR NEB PRN NEB SHORTNESS OF BREATH; Start 07/02/16 at 08:15 Amlodipine Besylate (Norvasc) 10 mg DAILY PO Last administered on 07/02/16 09: 53; Start 07/02/16 at 09:00 Aspirin (Ecotrin Ec) 81 mg DAILY PO Last administered on 07/02/16 09:53; Start 07/02/16 at 09:00 Atorvastatin Calcium (Lipitor) 20 mg HS PO Last administered on 07/02/16 20:48 ; Start 07/02/16 at 21:00 Potassium Chloride (KCl) 20 meq Q12HR PO Last administered on 07/02/16 20:48; Start 07/02/16 at 09:00 Enalaprilat (Vasotec Inj) 1.25 mg Q8H PRN IV PUSH SBP> OR = 180, DBP> OR = 100 ; Start 07/02/16 at 08:15 Metoprolol Tartrate (Lopressor) 12.5 mg Q12HR PO Last administered on 20:48; Start 07/02/16 at 21:00 Ciprofloxacin (Cipro) 500 mg BID PO ; Start 07/02/16 at 21:00; Stop 07/02/16 at 21:00; Status DC Ciprofloxacin (Cipro) 500 mg BID PO Last administered on 07/02/16 20:48; Start 07/02/16 at 16:00 Guaifenesin (Mucinex Er) 600 mg BID PRN PO COUGH Last administered on 15:40; Start 07/02/16 at 15:45 A/P Assessment and Plan A/P - acute on chronic diastolic CHF continue with IV lasix; however will reduce the dose- I/O monitoring- had an echo two weeks ago- cardiology consult appreciated. -aortic stenosis- cardiology consult appreciated; has an appointment for outpatient work-up for possible surgical intervention. -acute kidney injury- likely due to diuretics; will reduce the dose of lasix and continue to monitor the renal function. -COPD; neb treatment as needed -hypertension/ dyslipidemia; resumed home meds; amlodipine/ statin -DVT prophylaxis with subq heparin Discharge Planning possible dc home in am if stable and cleared by cardiology. Bhavin Agudelo MD Jul 03, 2016 08:00
[2016-07-03] MEDS: HEPARIN SODIUM - SQ 10,000 UNITS/ML VIAL SQ SCH ×3 (08:39→23:27)
[2016-07-03] MEDS: SODIUM CHLORIDE 0.9% FLUSH 10 ML FLUSH IV FLUSH SCH ×2 (08:40→19:31)
[2016-07-03] MEDS: FUROSEMIDE 20 MG/2 ML VIAL IV PUSH SCH (08:40)
[2016-07-03] MEDS: ASPIRIN EC 81 MG TABEC PO SCH (08:41)
[2016-07-03] MEDS: CIPROFLOXACIN 500 MG TAB PO SCH ×2 (08:41→19:29)
[2016-07-03] MEDS: METOPROLOL TARTRATE 25 MG TAB PO SCH ×2 (08:42→19:31)
[2016-07-03] MEDS: POTASSIUM CHLORIDE 20 MEQ CONTROLLED RELEASE TAB PO SCH ×2 (08:42→19:31)
[2016-07-03] MEDS: guaiFENesin E.R. 600 MG TAB PO PRN ×2 (08:51→19:32)
[2016-07-03] MEDS ORDERED: FUROSEMIDE 40 MG/4 ML VIAL IV PUSH SCH (09:00)
--- NOTE | 2016-07-03 10:28 | PD.CONS ---
History of Present Illness Service ENT Consult Requested By Hospitalist Reason for Consult Otitis and sinusitis Primary Care Physician Rena Lynne MD Diagnoses: History of Present Illness Alejnadro is well known to me. Has had several right ear infections thought to be more external. He wears haring aids and his canal has appeared inflamed. 2 weeks ago we cultured the right ear with bloody otorrhea and found pseudomonas and E coli both sensitive to Cipro. He has rested the hearing and and was getting better on antibiotics. He had a little more blood from the canal and we had planned to check the middle ear with a temporal bone CT yesterday. He also has had some sinus pressure, but this appeared to be getting better on Cipro and with sinus irrigations. He could not do his CT due to this admission, but he is feeling much better with both his ear and sinuses. Review of Systems Ears, nose, mouth, throat: COMPLAINS OF: Hearing loss, DENIES: Nasal discharge , Oral lesions, Hoarseness, Ear Pain Past Family Social History Allergies: Coded Allergies: No Known Allergies (Unverified , 07/02/16) Past Medical History hearing loss, chronic sinusitis Physical Exam Vital Signs Vital Signs Date Time Temp Pulse Resp B/P Pulse Ox O2 Delivery O2 Flow Rate FiO2 07/03/16 09:46 97 07/03/16 08:22 95 Room Air 07/03/16 08:18 102 07/03/16 08:00 97.5 91 18 112/71 95 07/03/16 07:00 91 07/03/16 06:00 86 07/03/16 05:00 84 07/03/16 04:00 90 07/03/16 04:00 98.2 90 18 95/58 94 07/03/16 04:00 Nasal Cannula 3.00 07/03/16 03:00 87 07/03/16 02:00 91 07/03/16 01:00 88 07/03/16 00:00 98.6 87 18 130/86 95 07/03/16 00:00 87 07/03/16 00:00 Nasal Cannula 3.00 07/02/16 23:00 92 07/02/16 22:00 95 07/02/16 21:15 96 Nasal Cannula 2.00 07/02/16 21:00 94 07/02/16 20:00 98.1 97 20 137/86 95 07/02/16 20:00 Nasal Cannula 3.00 07/02/16 20:00 97 07/02/16 18:00 96 07/02/16 17:00 110 07/02/16 16:00 98.7 103 18 130/80 93 07/02/16 16:00 98 07/02/16 15:00 102 07/02/16 14:00 96 07/02/16 13:00 116 07/02/16 12:00 98.8 103 18 122/82 94 07/02/16 12:00 103 07/02/16 11:00 100 07/02/16 10:30 109 Physical Exam GENERAL: This is a well-nourished, well-developed patient, in no apparent distress. SKIN: No rashes, ecchymoses or lesions. Cool and dry. HEAD: Atraumatic. Normocephalic. No temporal or scalp tenderness. EYES: Pupils equal round and reactive. Extraocular motions intact. No scleral icterus. No injection or drainage. ENT: Nose without bleeding, purulent drainage or septal hematoma. Throat without erythema, tonsillar hypertrophy or exudate. Uvula midline. Airway patent. Right canal shows dry boric acid powder from office treatment. No blood or pus. NECK: Trachea midline. No JVD or lymphadenopathy. Supple, nontender, no meningeal signs. NEUROLOGICAL: Awake and alert. Cranial nerves II through XII intact. Laboratory Laboratory Tests Test 07/02/16 07/03/16 12:56 04:56 Total Creatine Kinase 152 Troponin I 0.03 White Blood Count 6.8 Red Blood Count 5.08 Hemoglobin 16.2 Hematocrit 47.6 Mean Corpuscular Volume 93.7 Mean Corpuscular Hemoglobin 31.9 Mean Corpuscular Hemoglobin 34.1 Concent Red Cell Distribution Width 16.0 Platelet Count 169 Mean Platelet Volume 8.1 Neutrophils (%) (Auto) 82.2 Lymphocytes (%) (Auto) 10.1 Monocytes (%) (Auto) 7.6 Eosinophils (%) (Auto) 0.0 Basophils (%) (Auto) 0.1 Neutrophils # (Auto) 5.6 Lymphocytes # (Auto) 0.7 Monocytes # (Auto) 0.5 Eosinophils # (Auto) 0.0 Basophils # (Auto) 0.0 CBC Comment DIFF FINAL Differential Comment Sodium Level 143 Potassium Level 3.9 Chloride Level 106 Carbon Dioxide Level 26.7 Anion Gap 10 Blood Urea Nitrogen 29 Creatinine 1.32 Estimat Glomerular Filtration 52 Rate Random Glucose 144 Calcium Level 8.7 Date/Time Procedure Status Source Growth 07/02/16 06:00 Influenza Types A,B Antigen (DEVI) Ordered Nasal Aspirate Pending 07/02/16 05:20 Aerobic Blood Culture Received Blood Peripheral Pending 07/02/16 05:20 Anaerobic Blood Culture Received Blood Peripheral Pending Result Diagram: 07/03/16 0456 07/03/166 Assessment and Plan Assessment and Plan Chronic otitis. Suspect otitis externa, but has had several episodes of bloody otorrhea and may have middle ear disease with cholesteatoma. Will check non- contrast CT Temporal bone in hospital. Clinically very much improved ears and sinuses. No longer has drainage. Can wear his right hearing aid. Should finish his outpatient Cipro. OK for D/C per ENT. Has outpatient follow up scheduled. Discussed Condition With patient, spouse and Nursing. Conrad Monson MD Jul 03, 2016 10:28
[2016-07-03] MEDS ORDERED: EPINEPHrine HCL (1:10,000) 1 MG/10 ML SYRINGE ONE (12:16)
[2016-07-03] MEDS ORDERED: ATROPINE SULFATE 1 MG/10 ML SYRINGE ONE (12:16)
--- NOTE | 2016-07-03 12:58 | HHI.PR ---
Subjective Remarks Feeling better Objective Vital Signs Date Time Temp Pulse Resp B/P Pulse Ox O2 Delivery O2 Flow Rate FiO2 07/03/16 11:45 98.5 90 17 120/77 93 07/03/16 10:30 78 07/03/16 09:46 97 07/03/16 08:22 95 Room Air 07/03/16 08:18 102 07/03/16 08:00 97.5 91 18 112/71 95 07/03/16 07:00 91 07/03/16 06:00 86 07/03/16 05:00 84 07/03/16 04:00 90 07/03/16 04:00 98.2 90 18 95/58 94 07/03/16 04:00 Nasal Cannula 3.00 07/03/16 03:00 87 07/03/16 02:00 91 07/03/16 01:00 88 07/03/16 00:00 98.6 87 18 130/86 95 07/03/16 00:00 87 07/03/16 00:00 Nasal Cannula 3.00 07/02/16 23:00 92 07/02/16 22:00 95 07/02/16 21:15 96 Nasal Cannula 2.00 07/02/16 21:00 94 07/02/16 20:00 98.1 97 20 137/86 95 07/02/16 20:00 Nasal Cannula 3.00 07/02/16 20:00 97 07/02/16 18:00 96 07/02/16 17:00 110 07/02/16 16:00 98.7 103 18 130/80 93 07/02/16 16:00 98 07/02/16 15:00 102 07/02/16 14:00 96 07/02/16 13:00 116 I/O 07/02/16 07/02/16 07/02/16 07/03/16 07/03/16 07/03/16 07:00 15:00 23:00 07:00 15:00 23:00 Intake Total 720 ml 242 ml Output Total 1000 ml 950 ml Balance -280 ml -708 ml Intake Oral 720 ml 240 ml IV Total 2 ml Output Urine Total 1000 ml 950 ml # Bowel Movements 1 0 Result Diagram: 07/03/16 0456 07/03/16 0456 Imaging Alert, fully oriented Lungs: ventilated Heart: S1, S2 regular, TOOTIE I/ Abdomen: obese, no mass Ext: no edema Last Impressions Chest X-Ray 07/02/16 7057 Signed Impressions: Service Date/Time: Saturday, July 02, 2016 04:56 - CONCLUSION: Bilateral lower lung zone airspace consolidation. Although this appearance is nonspecific, pulmonary edema could have this appearance in the appropriate clinical setting. Raoul Gan MD Current Medications Medications (Trade) Dose Ordered Sig/Maribel Route Start Time Stop Time Status Last Admin (NS Flush) 2 ml UNSCH PRN IV FLUSH 07/02/16 06:45 (NS Flush) 2 ml BID IV FLUSH 07/02/16 09:00 07/03/16 08:40 (Heparin Inj) 5,000 units Q8H SQ 07/02/16 08:00 07/03/16 08:39 (Narcan Inj) 0.4 mg UNSCH PRN IV 07/02/16 06:45 (Norvasc) 10 mg DAILY PO 07/02/16 09:00 07/03/16 08:42 (Ecotrin Ec) 81 mg DAILY PO 07/02/16 09:00 07/03/16 08:41 (Lipitor) 20 mg HS PO 07/02/16 21:00 07/02/16 20:48 (KCl) 20 meq Q12HR PO 07/02/16 09:00 07/03/16 08:42 (Vasotec Inj) 1.25 mg Q8H PRN IV PUSH 07/02/16 08:15 (Lopressor) 12.5 mg Q12HR PO 07/02/16 21:00 07/03/16 08:42 (Cipro) 500 mg BID PO 07/02/16 16:00 07/03/16 08:41 (Mucinex Er) 600 mg BID PRN PO 07/02/16 15:45 07/03/16 08:51 (Lasix Inj) 20 mg DAILY IV PUSH 07/03/16 09:00 07/03/16 08:40 Assessment and Plan Problem List: (1) CHF exacerbation Status: Acute Plan: Normal EF. SOB most likely due to Aortic Stenosis (2) Aortic stenosis Status: Acute Plan: Stable for now. Mean gradient 37 Ear infection. Follow by Dr Monson who recommended PO Cipro as OP. Dr Sanchez plan to schedule workup when clear from infection Temp[oral CT scan performed today Will continue on current management Problem Qualifiers (1) CHF exacerbation: Qualified Code: I50.9 - Acute on chronic congestive heart failure, unspecified congestive heart failure type Victorino Ta MD Jul 03, 2016 12:58
--- NOTE | 2016-07-03 13:11 | RADRPT ---
EXAM DATE/TIME: 07/03/2016 12:26 [facility] COMPARISON: No previous studies available for comparison. INDICATIONS : Bloody otovvhea, right ear, possible cholesteatuma. RADIATION DOSE: 114.16 CTDIvol (mGy) MEDICAL HISTORY : Hypertension. SURGICAL HISTORY : None. ENCOUNTER: Initial ACUITY: 1 day PAIN SCORE: 0/10 LOCATION: cranial TECHNIQUE: Volumetric scanning of the temporal bone was performed. Using automated exposure cont rol and adjustment of the mA and/or kV according to patient size, radiation dose was kept as low as r easonably achievable to obtain optimal diagnostic quality images. FINDINGS: OSSICLES: The ossicles are intact. The oval window niche is intact. MASTOID AIR CELLS: Well aerated. No sclerotic or opacified air cells are seen. The aditus is in tact. MIDDLE EAR: The epitympanum and hypotympanum are intact. Prussak's space and scutum are intact. The oval and round window is intact. LABYRINTH: The cochlea and semicircular canals are normal in configuration without sclerosis. INTERNAL ACOUSTIC CANAL: Normal in size without erosion. The cerebellar-pontine angle is intact. JUGULAR FOSSA: Normal in size and position. FACIAL CANAL: The tympanic, genu and descending portions are intact. EXTERNAL ACOUSTIC CANAL: The bony and cartilaginous portions are intact. CONCLUSION: Negative CT scan of temporal bones. Further evaluation suggested. Angel Miguel MD FACR on July 03, 2016 at 12:59 Board Certified Radiologist. This report was verified electronically.
[2016-07-03] MEDS: ATORVASTATIN 20 MG TAB PO SCH (19:31)
[2016-07-04] VITALS (18 sets, daily range): BP systolic 116–136; BP diastolic 77–88; PULSE 78–104; RESP 17–18; TEMP 97.7–98.3; O2SAT 91–94
[2016-07-04 07:06] LABS: BICARBONATE 29.1 MEQ/L (21.0-32.0); POTASSIUM 3.9 MEQ/L (3.5-5.1)
[2016-07-04] MEDS: guaiFENesin E.R. 600 MG TAB PO PRN (07:55)
[2016-07-04] MEDS: HEPARIN SODIUM - SQ 10,000 UNITS/ML VIAL SQ SCH (07:55)
[2016-07-04] MEDS: SODIUM CHLORIDE 0.9% FLUSH 10 ML FLUSH IV FLUSH SCH (07:55)
[2016-07-04] MEDS: POTASSIUM CHLORIDE 20 MEQ CONTROLLED RELEASE TAB PO SCH (07:56)
[2016-07-04] MEDS: METOPROLOL TARTRATE 25 MG TAB PO SCH (07:56)
[2016-07-04] MEDS: FUROSEMIDE 20 MG/2 ML VIAL IV PUSH SCH (07:56)
[2016-07-04] MEDS: ASPIRIN EC 81 MG TABEC PO SCH (07:56)
[2016-07-04] MEDS: CIPROFLOXACIN 500 MG TAB PO SCH (07:56)
--- NOTE | 2016-07-04 08:48 | HHI.PR ---
Subjective Remarks resting comfortably with no distress. no chest pain or sob. wants to go home today. Objective Vitals Vital Signs Date Time Temp Pulse Resp B/P Pulse Ox O2 Delivery O2 Flow Rate FiO2 07/04/16 08:17 98.2 100 17 135/84 92 07/04/16 08:15 93 Room Air 07/04/16 06:00 92 07/04/16 05:00 90 07/04/16 04:00 98.0 98 18 129/86 93 07/04/16 04:00 Room Air 07/04/16 04:00 98 07/04/16 03:00 88 07/04/16 02:00 92 07/04/16 01:00 87 07/04/16 00:00 98.3 90 18 116/77 94 07/04/16 00:00 90 07/04/16 00:00 Room Air 07/03/16 23:00 87 07/03/16 22:08 93 21 07/03/16 22:00 84 07/03/16 21:00 86 07/03/16 20:00 85 07/03/16 20:00 Room Air 07/03/16 20:00 98.1 85 18 118/75 95 07/03/16 18:08 84 07/03/16 17:29 105 07/03/16 16:09 93 07/03/16 15:00 97.5 99 18 128/83 94 07/03/16 15:00 95 07/03/16 14:33 94 07/03/16 13:00 104 07/03/16 12:00 98 07/03/16 11:45 98.5 90 17 120/77 93 07/03/16 11:00 87 07/03/16 10:30 78 07/03/16 09:46 97 I/O 07/03/16 07/03/16 07/03/16 07/04/16 07/04/16 07/04/16 07:00 15:00 23:00 07:00 15:00 23:00 Intake Total 242 ml 960 ml 480 ml Output Total 950 ml 800 ml 750 ml Balance -708 ml 160 ml -270 ml Intake Oral 240 ml 960 ml 480 ml IV Total 2 ml Output Urine Total 950 ml 800 ml 750 ml # Voids 1 # Bowel Movements 0 0 Result Diagram: 07/03/16 0456 07/04/16 0537 Imaging Last Impressions Temporal Bone CT 07/03/16 0000 Signed Impressions: Service Date/Time: Sunday, July 03, 2016 12:26 - CONCLUSION: Negative CT scan of temporal bones. Further evaluation suggested. Angel Miguel MD FACR Chest X-Ray 07/02/16 0457 Signed Impressions: Service Date/Time: Saturday, July 02, 2016 04:56 - CONCLUSION: Bilateral lower lung zone airspace consolidation. Although this appearance is nonspecific, pulmonary edema could have this appearance in the appropriate clinical setting. Raoul Gan MD Objective Remarks GENERAL: This is a well-nourished, well-developed patient, in no apparent distress. CARDIOVASCULAR: Regular rate and regular rhythm without murmurs, gallops, or rubs. RESPIRATORY: better air entry bilaterally. GASTROINTESTINAL: Abdomen soft, non-tender, nondistended. Normal, active bowel sounds MUSCULOSKELETAL: Extremities without clubbing, cyanosis, or edema. NEURO: Alert & Oriented x4 to person, place, time, situation. Moves all ext x4 Procedures none Medications and IVs Current Medications Sodium Chloride (NS Flush) 2 ml UNSCH PRN IVF FLUSH AFTER USING IV ACCESS Last administered on 07/02/16 06:04; Start 07/02/16 at 05:00; Stop 07/02/16 at 06:37 ; Status DC Furosemide (Lasix Inj) 40 mg ONCE ONCE IVP Last administered on 07/02/16 06: 04; Start 07/02/16 at 05:00; Stop 07/02/16 at 05:01; Status DC Methylprednisolone Sodium Succinate (SoluMEDROL INJ) 125 mg ONCE ONCE IVP Last administered on 07/02/16 06:04; Start 07/02/16 at 05:00; Stop 07/02/16 at 05:01; Status DC Albuterol/ Ipratropium (Duoneb Neb) 1 ampule Q15M INH Last administered on 07/02 05:08; Start 07/02/16 at 05:00; Stop 07/02/16 at 05:31; Status DC Sodium Chloride (NS Flush) 2 ml UNSCH PRN IV FLUSH FLUSH AFTER USING IV ACCESS ; Start 07/02/16 at 06:45 Sodium Chloride (NS Flush) 2 ml BID IV FLUSH Last administered on 07/04/16 07: 55; Start 07/02/16 at 09:00 Heparin Sodium (Porcine) (Heparin Inj) 5,000 units Q8H SQ Last administered on 07/04/16 07:55; Start 07/02/16 at 08:00 Naloxone HCl (Narcan Inj) 0.4 mg UNSCH PRN IV SEE LABEL COMMENTS; Start at 06:45 Furosemide (Lasix Inj) 40 mg BID@09,18 IV PUSH Last administered on 07/02/16 17:21; Start 07/02/16 at 09:00; Stop 07/03/16 at 07:57; Status DC Potassium Chloride (KCl) 40 meq ONCE ONCE PO Last administered on 07/02/16 08 :55; Start 07/02/16 at 06:45; Stop 07/02/16 at 06:46; Status DC Albuterol/ Ipratropium (Duoneb Neb) 1 ampule Q4HR NEB PRN NEB SHORTNESS OF BREATH; Start 07/02/16 at 08:15 Amlodipine Besylate (Norvasc) 10 mg DAILY PO Last administered on 07/04/16 07: 56; Start 07/02/16 at 09:00 Aspirin (Ecotrin Ec) 81 mg DAILY PO Last administered on 07/04/16 07:56; Start 07/02/16 at 09:00 Atorvastatin Calcium (Lipitor) 20 mg HS PO Last administered on 07/03/16 19:31 ; Start 07/02/16 at 21:00 Potassium Chloride (KCl) 20 meq Q12HR PO Last administered on 07/04/16 07:56; Start 07/02/16 at 09:00 Enalaprilat (Vasotec Inj) 1.25 mg Q8H PRN IV PUSH SBP> OR = 180, DBP> OR = 100 ; Start 07/02/16 at 08:15 Metoprolol Tartrate (Lopressor) 12.5 mg Q12HR PO Last administered on 07/04/16 07:56; Start 07/02/16 at 21:00 Ciprofloxacin (Cipro) 500 mg BID PO ; Start 07/02/16 at 21:00; Stop 07/02/16 at 21:00; Status DC Ciprofloxacin (Cipro) 500 mg BID PO Last administered on 07/04/16 07:56; Start 07/02/16 at 16:00 Guaifenesin (Mucinex Er) 600 mg BID PRN PO COUGH Last administered on 07/04/16 07:55; Start 07/02/16 at 15:45 Furosemide (Lasix Inj) 40 mg DAILY IV PUSH ; Start 07/03/16 at 09:00; Stop at 09:00; Status DC Furosemide (Lasix Inj) 20 mg DAILY IV PUSH Last administered on 07/04/16 07:56 ; Start 07/03/16 at 09:00 Atropine Sulfate (Atropine Inj) 1 mg STK-MED ONCE .ROUTE ; Start 07/03/16 at 12: 16; Stop 07/03/16 at 12:17; Status DC Epinephrine HCl (EPINEPHrine (1:10,000) INJ) 1 mg STK-MED ONCE .ROUTE ; Start at 12:16; Stop 07/03/16 at 12:17; Status DC A/P Assessment and Plan A/P - acute on chronic diastolic CHF- improved continue with lasix; cardiology following. -aortic stenosis- cardiology consult appreciated; has an appointment for outpatient work-up for possible surgical intervention. -acute kidney injury- improved. -chronic otitis- outpatient follow-up- ENT consult appreciated. -COPD; neb treatment as needed -hypertension/ dyslipidemia; resumed home meds; amlodipine/ statin -DVT prophylaxis with subq heparin Discharge Planning dc home today after cleared by cardiology. see med list. f/u; pcp, cardiology and ENT. d/w the patient and Bhavin Reyez MD Jul 04, 2016 08:48
[2016-07-04] MEDS ORDERED: POTA10CA PO (08:49)
[2016-07-04] MEDS ORDERED: METO25TA3 PO (08:55)
--- NOTE | 2016-07-04 08:56 | HHI.DS ---
Discharge Summary Admission Date Jul 02, 2016 at 06:36 Discharge Date: Jul 04, 2016 Admitting Diagnosis CHF exacerbation (1) CHF exacerbation ICD Code: I50.9 Diagnosis: Principal Procedures none Brief History - From Admission patient is a 81 y/o male with history of CHF, hypertension, rheumatic fever , COPD who presented to ER with sob. he says that he's had sob over the past one week which he initially related to common cold. he says that he woke up in the morning with worsening sob. he denies any productive cough, chest pain, fever or chills. but he reports ten-pound weight gain over the past two weeks.he says that he's being worked up for ' a leaky valve'. at the time of presentation to ER he was started on BiPaP. at the time of my evaluation he was in no acute distress, stating that his sob had already improved. CBC/BMP: 07/03/16 0456 07/04/16 0537 Significant Findings Laboratory Tests Test 07/02/16 07/02/16 07/02/16 07/03/16 01:02 04:45 05:18 04:56 Hemoglobin 17.2 GM/DL (13.0-17.0) Monocytes (%) (Auto) 9.7 % (0.0-8.0) Eosinophils (%) (Auto) 4.4 % (0.0-4.0) B-Type Natriuretic Peptide 381 PG/ML (0-100) Activated Partial 35.9 SEC Thromboplast Time (24.3-30.1) Potassium Level 3.4 MEQ/L (3.5-5.1) Chloride Level 108 MEQ/L (98-107) Estimat Glomerular Filtration 66 ML/MIN (>89) 52 ML/MIN (>89) Rate Troponin I LESS THAN 0.02 NG/ML (0.02-0.05) Blood Gas HCO3 20 mmol/L (22-26) Blood Gas Base Excess -3.7 mmol/L (-2-2) Arterial Blood Partial 34 mmHg (38-42) Pressure CO2 Arterial Blood Oxygen Content 21.1 Vol % (12.0-20.0) Blood Gas Hemoglobin 16.6 G/DL (12.0-16.0) Neutrophils (%) (Auto) 82.2 % (16.0-70.0) Lymphocytes # (Auto) 0.7 TH/MM3 (1.0-4.8) Blood Urea Nitrogen 29 MG/DL (7-18) Creatinine 1.32 MG/DL (0.60-1.30) Random Glucose 144 MG/DL (74-106) Test 07/04/16 05:37 Blood Urea Nitrogen 31 MG/DL (7-18) Estimat Glomerular Filtration 61 ML/MIN (>89) Rate Imaging Last Impressions Temporal Bone CT 07/03/16 0000 Signed Impressions: Service Date/Time: Sunday, July 03, 2016 12:26 - CONCLUSION: Negative CT scan of temporal bones. Further evaluation suggested. Angel Miguel MD FACR Chest X-Ray 07/02/16 0457 Signed Impressions: Service Date/Time: Saturday, July 02, 2016 04:56 - CONCLUSION: Bilateral lower lung zone airspace consolidation. Although this appearance is nonspecific, pulmonary edema could have this appearance in the appropriate clinical setting. Raoul Gan MD PE at Discharge GENERAL: This is a well-nourished, well-developed patient, in no apparent distress. CARDIOVASCULAR: Regular rate and regular rhythm without murmurs, gallops, or rubs. RESPIRATORY: better air entry bilaterally. GASTROINTESTINAL: Abdomen soft, non-tender, nondistended. Normal, active bowel sounds MUSCULOSKELETAL: Extremities without clubbing, cyanosis, or edema. NEURO: Alert & Oriented x4 to person, place, time, situation. Moves all ext x4 Hospital Course - acute on chronic diastolic CHF- improved continue with lasix; cardiology following. -aortic stenosis- cardiology consult appreciated; has an appointment for outpatient work-up for possible surgical intervention. -acute kidney injury- improved. -chronic otitis- outpatient follow-up- ENT consult appreciated. -COPD; neb treatment as needed -hypertension/ dyslipidemia; resumed home meds; amlodipine/ statin -DVT prophylaxis with subq heparin Pt Condition on Discharge: Good Discharge Disposition: Discharge Home Discharge Time: <= 30 minutes Discharge Instructions DIET: Follow Instructions for: Heart Healthy Diet, Low Sodium Diet Activities you can perform: Regular-No Restrictions Follow up Referrals: Cardiology Ear Nose Throat PCP Follow-up New Medications: Nebulizer (Nebulizer) 1 Mis Mis 1 EA .ROUTE DIRECTED Breathing Treatment #1 Ref 0 EA Potassium Chloride ER (Potassium Chloride ER) 10 Meq Cap 10 MEQ PO DAILY Electrolyte Replacement #30 Ref 0 CAP Metoprolol Tartrate (Metoprolol Tartrate) 25 Mg Tab 12.5 MG PO Q12HR hypertension Days 30 Ref 0 TAB Continued Medications: Amlodipine (Amlodipine) 10 Mg Tab 10 MG PO DAILY Blood Pressure Management #30 Ref 0 TAB Aspirin (Aspirin) 81 Mg Tabdr 81 MG PO DAILY TAB Atorvastatin (Atorvastatin) 20 Mg Tab 20 MG PO HS Cholesterol Management #30 Ref 0 TAB Cholecalciferol (Vitamin D3) 2,000 Unit Tab 2000 UNITS PO DAILY Nutritional Supplement #1 Ref 0 BOTTLE Ciprofloxacin (Ciprofloxacin) 500 Mg Tab 500 MG PO BID Infection Ref 0 TAB Coenzyme X93-Vqcw Oil-Vitamin (Co-Q 10 Thorpe-3 Fish Oil) 1 Cap Cyanocobalamin (Vitamin B-12) 1,000 Mcg Subl 1000 MCG SL DAILY Nutritional Supplement Ref 0 TAB.SL Furosemide (Furosemide) 20 Mg Tab 20 MG PO DAILY #30 Ref 0 TAB Multiple Vitamins W/ Minerals (Multi For Him 50+) 1 Tab Tab Multiple Vitamins W/ Minerals (I-Elva) 1 Tab Tab Thorpe-3 Fatty Acids (Fish Oil 1200 mg) 1 Cap Cap 1200 MG PO DAILY Testosterone Cypionate Inj (Testosterone Cypionate Inj) 200 Mg/Ml Inj 200 MG IM q10d Hormone Replacement #1 Ref 0 VIAL Discontinued Medications: Ibuprofen (Ibuprofen) 800 Mg Tab 800 MG PO BID PRN PAIN #40 Ref 0 TAB Bhavin Agudelo MD Jul 04, 2016 08:56
--- NOTE | 2016-07-04 08:56 | HHI.DCPOC ---
Discharge Care Plan Diagnosis: (1) CHF exacerbation Your Health Problems Are: Shortness of Breath Goals to Promote Your Health * To prevent worsening of your condition and complications * To maintain your health at the optimal level Directions to Meet Your Goals Take your medications as prescribed Follow your dietary instruction Follow activity as directed Keep your appointments as scheduled Take your immunizations and boosters as scheduled If your symptoms worsen call your PCP, if no PCP go to Urgent Care Center or Emergency Room Smoking is Dangerous to Your Health. Avoid second hand smoke Call the 24-hour hour crisis hotline for domestic abuse at Bhavin Agudelo MD Jul 04, 2016 08:55
--- NOTE | 2016-07-04 12:16 | HHI.PR ---
Subjective Remarks Doing ok. Can I go home? Objective Vital Signs Date Time Temp Pulse Resp B/P Pulse Ox O2 Delivery O2 Flow Rate FiO2 07/04/16 10:28 85 07/04/16 09:10 91 07/04/16 09:00 104 07/04/16 08:17 98.2 100 17 135/84 92 07/04/16 08:15 93 Room Air 07/04/16 08:00 104 07/04/16 07:00 99 07/04/16 06:00 92 07/04/16 05:00 90 07/04/16 04:00 98.0 98 18 129/86 93 07/04/16 04:00 Room Air 07/04/16 04:00 98 07/04/16 03:00 88 07/04/16 02:00 92 07/04/16 01:00 87 07/04/16 00:00 98.3 90 18 116/77 94 07/04/16 00:00 90 07/04/16 00:00 Room Air 07/03/16 23:00 87 07/03/16 22:08 93 21 07/03/16 22:00 84 07/03/16 21:00 86 07/03/16 20:00 85 07/03/16 20:00 Room Air 07/03/16 20:00 98.1 85 18 118/75 95 07/03/16 18:08 84 07/03/16 17:29 105 07/03/16 16:09 93 07/03/16 15:00 97.5 99 18 128/83 94 07/03/16 15:00 95 07/03/16 14:33 94 07/03/16 13:00 104 I/O 07/03/16 07/03/16 07/03/16 07/04/16 07/04/16 07/04/16 07:00 15:00 23:00 07:00 15:00 23:00 Intake Total 242 ml 960 ml 480 ml Output Total 950 ml 800 ml 750 ml Balance -708 ml 160 ml -270 ml Intake Oral 240 ml 960 ml 480 ml IV Total 2 ml Output Urine Total 950 ml 800 ml 750 ml # Voids 1 # Bowel Movements 0 0 Result Diagram: 07/03/16 0456 07/04/16 0537 Imaging Alert, fully oriented lungs: ventilated Heart: S1, S2 regular, no gallop Abdomen: soft, no mass Ext: no edema Current Medications Medications (Trade) Dose Ordered Sig/Maribel Route Start Time Stop Time Status Last Admin (NS Flush) 2 ml UNSCH PRN IV FLUSH 07/02/16 06:45 (NS Flush) 2 ml BID IV FLUSH 07/02/16 09:00 07/04/16 07:55 (Heparin Inj) 5,000 units Q8H SQ 07/02/16 08:00 07/04/16 07:55 (Narcan Inj) 0.4 mg UNSCH PRN IV 07/02/16 06:45 (Norvasc) 10 mg DAILY PO 07/02/16 09:00 07/04/16 07:56 (Ecotrin Ec) 81 mg DAILY PO 07/02/16 09:00 07/04/16 07:56 (Lipitor) 20 mg HS PO 07/02/16 21:00 07/03/16 19:31 (KCl) 20 meq Q12HR PO 07/02/16 09:00 07/04/16 07:56 (Vasotec Inj) 1.25 mg Q8H PRN IV PUSH 07/02/16 08:15 (Lopressor) 12.5 mg Q12HR PO 07/02/16 21:00 07/04/16 07:56 (Cipro) 500 mg BID PO 07/02/16 16:00 07/04/16 07:56 (Mucinex Er) 600 mg BID PRN PO 07/02/16 15:45 07/04/16 07:55 (Lasix Inj) 20 mg DAILY IV PUSH 07/03/16 09:00 07/04/16 07:56 Assessment and Plan Problem List: (1) CHF exacerbation Status: Acute Plan: No SOB. Doing better Can be DH and follow up as OP by Dr Cuevas and Daniel (2) Aortic stenosis Status: Acute Plan: Stable for now OP evaluation by Dr Cuevas Problem Qualifiers (1) CHF exacerbation: Qualified Code: I50.9 - Acute on chronic congestive heart failure, unspecified congestive heart failure type Victorino Ta MD Jul 04, 2016 12:16
--- NOTE | 2016-07-04 21:34 | EKG ---
Date Performed: 07/02/2016 Time Performed: 15:07:12 PTAGE: 81 years EKG: Possible low atrial rhythm Left axis deviation Left bundle branch block Abnormal ECG PREVIOUS TRACING : 07/02/2016 04.47 DOCTOR: Victorino Ta Interpretating Date/Time 07/04/2016 21:31:19
== END 2016-07-04 13:43 | disposition home or self-care (01) | DRG 292 ==
LOC: NEPC 04:43 → NEDA 06:36 → HCIS 10:00
PROVIDERS: ADMIT Internal Medicine; ATTEND Internal Medicine
PROC: 5A09357 Assistance with Respiratory Ventilation, Less than 24 Consecutive Hours, Continuous Positive Airway Pressure (ICD-10-PCS; principal; 2016-07-02)
DX: I50.33 Acute on chronic diastolic (congestive) heart failure (principal); N17.9 Acute kidney failure, unspecified; J44.9 Chronic obstructive pulmonary disease, unspecified; I08.0 Rheumatic disorders of both mitral and aortic valves; E78.5 Hyperlipidemia, unspecified; I11.0 Hypertensive heart disease with heart failure; H60.61 Unspecified chronic otitis externa, right ear; R09.02 Hypoxemia; T50.1X5A Adverse effect of loop [high-ceiling] diuretics, initial encounter; J32.9 Chronic sinusitis, unspecified; H66.91 Otitis media, unspecified, right ear; Z87.891 Personal history of nicotine dependence
CPT/HCPCS: 36600; 70480; 71010; 80048; 82550; 82552; 82805; 83880; 84484; 85025; 85610; 85730; 87040; 87205; 93005; 94640; 94664; 96374; 96375; J0171; J0461; J1644; J1940; J2930

== ENCOUNTER 2016-08-04 06:45 | Day surgery (SDC) | payer OTHER ==
[~2016-08-04] VITALS: Ht 182.9 cm; Wt 95.0 kg
[~2016-08-04 06:45] MED LIST changes: -1-ME1LIQ PO; -ALBU0.086 INH; +AMLO10TA2 PO; +ASPI1TAB69 PO; -ASPI1TAB7 PO; +ATOR20TA15 PO; -ATOR20TA42 PO; +CIPR500T2 PO; -CO-QCAP; +CO-QCAP PO; -IBUP-1116 PO; +METO25TA3 PO; +MULTTAB23; +POTA10CA PO; -TAB-TAB PO; +TEST200I12 IM; -TEST200I13 IM; -VITA-13 PO; -VITA100020 PO; +VITA100021 SL; +VITA200012 PO
[2016-08-04] MEDS ORDERED: NS 1000P @30 MLS/HR (KVO) IV SCH (07:00)
[2016-08-04] MEDS ORDERED: diphenhydrAMINE HCL 50 MG CAP PO SCH (07:00)
[2016-08-04 07:31] VITALS: BP 149/87; PULSE 81; RESP 18; TEMP 97.8; O2SAT 95
[2016-08-04] MEDS ORDERED: POTA10CA PO (07:31)
[2016-08-04] MEDS ORDERED: OCUVTAB4 PO (07:31)
[2016-08-04] MEDS ORDERED: METO25TA3 PO (07:31)
[2016-08-04 07:34] LABS: AUTOMATED NEUTROPHIL # 2.5 TH/MM3 (1.8-7.7); BASOPHIL % 0.4 % (0.0-2.0); EOSINOPHIL # 0.4 TH/MM3 (0-0.4); EOSINOPHIL % 7.3 % (0.0-4.0); HEMATOCRIT 52.3 % (39.0-51.0); HEMO FLAGS DIFF FINAL; LYMPH % 30.5 % (9.0-44.0); LYMPHOCYTE # 1.5 TH/MM3 (1.0-4.8); MEAN CELL VOLUME 91.4 FL (80.0-100.0); MEAN CORPUSCULAR HEMOGLOBIN 31.4 PG (27.0-34.0); MEAN CORPUSCULAR HGB CONC 34.4 % (32.0-36.0); MONO % 11.7 % (0.0-8.0); NEUT % 50.1 % (16.0-70.0); PLATELET COUNT 160 TH/MM3 (150-450); RED BLOOD COUNT 5.72 MIL/MM3 (4.50-5.90); RED CELL DISTRIBUTION WIDTH 14.8 % (11.6-17.2)
[2016-08-04 07:44] LABS: APTT (PATIENT) 29.8 SEC (24.3-30.1); PROTHROMBIN TIME - PATIENT 11.5 SEC (9.8-11.6)
[2016-08-04 07:59] LABS: BICARBONATE 32.7 MEQ/L (21.0-32.0); POTASSIUM 3.6 MEQ/L (3.5-5.1)
[2016-08-04] MEDS ORDERED: IOHEXOL 350 MG/ML 100 ML BTL (for Cath Lab) OTHER ONE (08:14)
[2016-08-04] MEDS ORDERED: HEPARIN-NS/PF INJ 500 ML ONE (08:18)
[2016-08-04] MEDS ORDERED: MIDAZOLAM HCL 2 MG/2 ML VIAL ONE (08:32)
[2016-08-04] MEDS ORDERED: VERAPAMIL HCL 5 MG/2 ML VIAL ONE (08:53)
[2016-08-04] MEDS ORDERED: HEPARIN SODIUM - IV 10,000 UNITS/10 ML VIAL ONE (09:03)
--- NOTE | 2016-08-04 09:19 | CATHPROC ---
[facility] HIS Report Study Information Study Number Scheduled Start Study Start [id number] 08/04/2016 Aug 04 2016 8:15AM Referring Institution Admit Source Facility Department 1 Other [facility] - [facility] Physician and Clinical Staff Initial Eugene Noriega Resident Inspectorshaquille Long RN, Niranjan Hoskins cathlab, cathlab Recorder Keo Lazaro RCIS(BS) Lisa Vance RCIS TECH2 Procedures Performed Procedure Location (Site) Vessel Name Coronary Angiograms LCA Left Coronary Coronary Angiograms RCA Right Coronary L Heart Cath Equipment Time Casing Builder Description Size Mfg Part Number Used/Scraped TRANSDUCER, TRUWAVE 08:16 VIRGEN BARRAZA * [id number] Used W/[employer] CONCEPT DRAPE, RADIAL FEMORAL FULL 08:16 * [id number] Used DEVELOPMENT BODY 08:16 [employer] PACK, CCL CUSTOM * [id number] Used 08:16 [employer] SUPPORT, ARTERIAL ADULT [id number] Used 08:16 [employer]With MEDICAL WIRE, 3MMJ .035 180CM 180CM [id number] Used 08:16 NAMIC MANIFOLD, 4 PORT * [id number] Used 08:16 [employer]COMED OMNIPAQUE, 350 MG, 100ML 100ML [id number] Used 08:57 [employer]COMED OMNIPAQUE, 350 MG, 150ML 150ML [id number] Used 08:16 ESCALANTE MEDICAL BLANKET,WARM AIR CCL * [id number] Used BAND, RADIAL COMPRESSION TR 08:16 TERUMO MEDICAL 29CM XX*[id number] Used LARGE SHEATH, FR6 TRANSRADIAL 08:16 [employer]UM[employer] MEDICAL FR 6 RM*[id number] Used SLENDER 10CM History: Current Medications Medication Dosage/Unit Route Frequency Last Date/Time Taken Beta Emma Statins (any) ASA History: Allergies Allergy Reaction NKDA History: Risk Factors Family History of Hypertension Dyslipidemia Previous [place] Previous Heart Failure Premature CAD Yes Yes Yes No Yes Prior Valve Prior PCI Prior CABG Surgery No No No Cerebrovascular Peripheral Artery Chronic Lung On Dialysis Diabetes Disease Disease Disease No No No Yes No History: Stress Tests Stress or Imaging Studies Performed Yes Standard Exercise Stress Test No Stress Echo No Stress Test SPECT Stress Test SPECT Result Stress Test SPECT Ischemia Risk/Extent Yes Positive Unavailable Stress Test CMR No Cardiac CTA Coronary Calcium Score No No History: Other Disease Selection Items HTN History: Other Current Smoker Method Quit Packs a Day Years Used Pack Years No Cigarettes 36 Years Ago 2 40 80 Labs Hgb (g/dl) Hct (%) WBC (l/cumm) Platelets (thousands) 12.00-18.00 37.00-55.00 4.80-10.80 140.00-450.00 18.0 52.3 5 160 Glucose (mg/dl) BUN (mg/dl) Creatinine (mg/dl) BUN:Creatinine (1:x) 60.00-110.00 8.00-20.00 0.10-9.00 10.00-20.00 93 20 1.2 16.7 Na (meq/l) K (meq/l) 138.00-146.00 3.80-5.10 140 3.6 INR (PTT:PT) 0.50-2.00 1 CPK-MB (ng/ML) 0.00-7.00 Not Drawn Medication Medication Total Dose (Bolus/Oral) Medication Total Dosage/Unit 1% XYLOCAINE 10 mL FENTANYL 50 mcg OXYGEN 2 l/min RADIAL COCKTAIL 5 mL (Bolus) VERSED 1 mg Medications (Bolus/Oral) Medication Time Given Dosage/Unit Administered By Reason VERSED 08/04/2016 8:53:00 AM 1 mg Niranjan Long RN 1 mg VERSED given in lab by Niranjan Long RN in Left Antecubital via Peripheral IV. Ordered by Eugene Carbone. 1% XYLOCAINE 08/04/2016 8:53:14 AM 10 mL Eugene Cotter 10 mL 1% XYLOCAINE given in lab by Eugene Cotter in Right Radial via Subcutaneous. FENTANYL 08/04/2016 8:54:15 AM 50 mcg Niranjan Long RN 50 mcg FENTANYL given in lab by Niranjan Long RN in Left Antecubital via Peripheral IV. Ordered by Eugene Teague. Ntg 200mcg Verapamil 2.5mg Heparin RADIAL COCKTAIL 08/04/2016 8:56:19 AM 5 mL (Bolus) Eugene Cotter 2500U 5 mL (Bolus) RADIAL COCKTAIL given in lab by Eugene Cotter via Radial. Using [Solution Name]. Ord ered by Eugene Cotter. Reason: Ntg 200mcg Verapamil 2.5mg Heparin 2500U. OXYGEN 08/04/2016 8:59:00 AM 2 l/min Niranjan Long RN 2 l/min OXYGEN given in lab by Niranjan Long RN via Nasal. Ordered by Eugene Cotter. Medication (Drip) Medication Time Given Dosage/Unit Concentration/Unit Diluent (ml) Solution IV Solutions 08/04/2016 8:14:45 AM 0 mL (IV) 500 NaCl .9 Patient arrived on IV Solutions in Left Antecubital via Peripheral IV. Pump/Drip Flow = 20 ml/hr usin g NaCl .9. Initial Case Assessment Cardiovascular HR Rhythm NIBP Chest Pain 82 SR 138/71 0 Edema Present Skin color Skin None Normal Warm Dry Circulatory - Right Pulses Dorsalis Pedis Femoral Radial 2 2 2 Scale (0,1,2,3,4,d) Scale (0,1,2,3,4,d) Neurological State Oriented to time-place- Alert Moves all extremities person Respiration - General Respiration Rate SpO2 (%) (B/min) 15 96 Final Case Assessment Cardiovascular HR Rhythm NIBP Chest Pain 82 SR 124/66 0 Edema Present Skin color Skin None Normal Warm Dry Circulatory - Right Pulses Dorsalis Pedis Femoral Radial 2 2 2 Scale (0,1,2,3,4,d) Scale (0,1,2,3,4,d) Neurological State Oriented to time-place- Alert Moves all extremities person Respiration - General Respiration Rate SpO2 (%) (B/min) 15 96 Chronological Log Time Study Chronological Log 8:14:34 Patient arrived via Bed. 8:14:35 Patient Name, D.O.B, / Armband Verified By R.N. 8:14:35 Consent signed by the physician and the patient and verified by the [facility] [employer] [facility] staff. 8:14:36 Pre-op and post- op instructions given; patient acknowledges understanding of instructions. 8:14:37 Verbal Stimulation=2 Physical Stimulation=2 Airway=2 Respiration=2 TOTAL=8. (0=absent, 1=cifuentes ited, 2=present) 8:14:38 Presedation assessment performed by [employer] [facility] RN. 8:14:39 Immediate Presedation assesment performed by physician. 8:14:39 Patient has been NPO for More than 6Hrs. 8:14:40 Skin Breakdown-none per patient 8:14:42 Patient Warmer Placed on the Table. 8:14:43 Estela Prominences Protected 8:14:45 A # 20 IV was noted in the Antecubital (left). Grade = 0 8:14:45 Patient arrived on IV Solutions in Left Antecubital via Peripheral IV. Pump/Drip Flow = 20 m l/hr using NaCl .9. 8:14:46 History and physical on the chart or being dictated. Vitals capture started with the following parameters, Patient=Adult, Interval=15 min, Initial Pr fxqlfz=828 mmHg, 8:17:28 Deflation Rate=5 mmHg 8:18:39 HR=82 bpm, XKMV=799/87 mmhg, SpO2=91 %, Resp=15 B/min, Pain=0, Claudy=10, Snowden=2 8:19:33 Allens test performed on the right radial and ulnar artery- POSITIVE. 8:19:52 Reference ECG taken Assessment: Initial Case, HR=82 BPM, Rhythm=SR, AOYV=775/71 mmhg, Chest Pain=0, Edema=None, Draper r=Normal, Skin = Warm, Dry 8:22:36 Right Pulses: Elvin Ped=2, Femoral=2, Radial=2 Neurological: State=Alert, Ox3, ALCANTARA Respiration: Resp=15 B/min, SpO2=96 % 8:23:10 HR=80 bpm, USIS=476/71 mmhg, SpO2=96.0 %, Resp=15 B/min, Pain=0, Claudy=10, Snowden=2 8:23:35 Right Radial and groin(s) prepped with 2% chlorhexidine, and with a 3 min. waiting time. 8:28:05 HR=94 bpm, VJPX=178/73 mmhg, SpO2=95.0 %, Resp=22 B/min, Pain=0, Claudy=10, Snowden=2 8:31:18 Pressure channel 1 zeroed. 8:32:48 MD paged 8:33:08 HR=79 bpm, WBDH=003/63 mmhg, SpO2=94.0 %, Resp=20 B/min, Pain=0, Claudy=10, Snowden=2 8:38:03 HR=84 bpm, HNEI=879/76 mmhg, SpO2=93.0 %, Resp=27 B/min, Pain=0, Claudy=10, Snowden=2 8:43:06 HR=80 bpm, QBFL=653/71 mmhg, SpO2=91.0 %, Resp=22 B/min, Pain=0, Claudy=10, Snowden=2 8:48:07 HR=81 bpm, WEYK=431/70 mmhg, SpO2=91.0 %, Resp=24 B/min, Pain=0, Claudy=10, Snowden=2 8:49:51 MD arrived. 8:53:00 1 mg VERSED given in lab by Niranjan Long RN in Left Antecubital via Peripheral IV. Ordered b y Eugene Cotter. 8:53:06 HR=81 bpm, PFRD=596/74 mmhg, SpO2=94.0 %, Resp=19 B/min, Pain=0, Claudy=10, Snowden=2 Time Out. Correct patient, correct procedure,correct physician, power injector not loaded with c ontrast with surgical 8:53:12 team present. Time Out Concurred by , individual staff in procedure 8:53:13 Case Start 8:53:14 10 mL 1% XYLOCAINE given in lab by Eugene Cotter in Right Radial via Subcutaneous. 8:54:15 50 mcg FENTANYL given in lab by Niranjan Long RN in Left Antecubital via Peripheral IV. Order ed by Eugene Cotter. 8:54:34 Access site was RIGHT Radial Artery. A SHEATH, FR6 TRANSRADIAL SLENDER 10CM FR 6 was advanced into the Radial (right) using the Kevin murillo 8:54:55 technique. 5 mL (Bolus) RADIAL COCKTAIL given in lab by Eugene Cotter via Radial. Using [Solution Name] . Ordered by Salma 8:56:19 Eugene Mondragon. Reason: Ntg 200mcg Verapamil 2.5mg Heparin 2500U. Recorded Pressure: Ao, HR=86, Condition=Condition 1 8:56:49 (Aorta) Ao 91/56/74 A JR 4.0 INFINITI CATHETER FR 5 was advanced over a wire. OMNIPAQUE, 350 MG, 150ML 150ML was u sed for 8:56:57 injections. 8:57:15 The RCA was injected and visualized at various angles. OMNIPAQUE, 350 MG, 150ML 150ML use d. 8:58:09 HR=87 bpm, LJVI=617/64 mmhg, SpO2=86.0 %, Resp=20 B/min, Pain=0, Claudy=10, Snowden=2 After removing the current catheter a JL 3.5 INFINITI CATHETER FR 5 was advanced over a WIRE, 3MMJ .035 180CM 8:58:50 180CM. OMNIPAQUE, 350 MG, 150ML 150ML was used for injections. 8:59:00 2 l/min OXYGEN given in lab by Niranjan Long RN via Nasal. Ordered by Eugene Cotter. 9:00:18 The LCA was injected and visualized at various angles. OMNIPAQUE, 350 MG, 150ML 150ML use d. After removing the current catheter a JL 4.0 INFINITI CATHETER FR 5 was advanced over a WIRE, 3MMJ .035 180CM 9:02:37 180CM. OMNIPAQUE, 350 MG, 150ML 150ML was used for injections. 9:03:26 The LCA was injected and visualized at various angles. OMNIPAQUE, 350 MG, 150ML 150ML use d. 9:03:41 HR=81 bpm, LFJL=201/66 mmhg, SpO2=91.0 %, Resp=22 B/min, Pain=0, Claudy=10, Snowden=2 Recorded Pressure: Ao, HR=81, Condition=Condition 1 9:05:11 (Aorta) Ao 106/58/78 9:06:11 Catheter was removed 9:06:22 Case End Assessment: Final Case, HR=82 BPM, Rhythm=SR, LZUL=270/66 mmhg, Chest Pain=0, Edema=None, Draper r=Normal, Skin = Warm, Dry 9:06:56 Right Pulses: Elvin Ped=2, Femoral=2, Radial=2 Neurological: State=Alert, Ox3, ALCANTARA Respiration: Resp=15 B/min, SpO2=96 % 9:07:27 Radial Compression Device Used. 9:08:05 HR=86 bpm, MWFG=897/78 mmhg, SpO2=92.0 %, Resp=9 B/min, Pain=0, Claudy=10, Snowden=2 9:08:05 Sterile dressing applied to site 9:08:05 No case complications noted. 9:08:07 Cine recording checked. 9:08:10 Bedside Report will be given. 9:08:12 Contrast Scanned 9:08:15 A Left Heart Cath was performed. 9:08:16 [facility] - Contrast Media Used In Study Contrast Total Opened (mL) Total Used (mL) Total Wasted (mL) Omnipaque 60 60 0 End Study - Maximum Contrast Load Max Contrast Load (mL) 395.8 End Study - Radiation Exposure Fluoro Time (minutes) 4.0 End Study - Patient Disposition Complications Transferred To Telemetry Bed
--- NOTE | 2016-08-04 09:36 | MA ---
cc: MALA OLGUIN DATE: 08/04/2016 DATE OF : 1935 PROCEDURE PERFORMED 1. Left heart catheterization. 2. Selective right and left coronary angiography. APPROACH Right radial artery. INDICATION Pre-op evaluation/severe symptomatic aortic stenosis/preserved LV systolic function. PROCEDURE DESCRIPTION Consent signed. The patient was brought into the cardiac labor gang supervisor in a fasting state. The right wrist was prepped and draped in a sterile fashion. Using 1% lidocaine for local anesthesia and a micropuncture kit, a 6-Nigerien sheath was inserted into the right radial artery. An antispasmodic cocktail was given then selective right and left coronary angiography was performed with JR4 and JL4 diagnostic catheters. Angiography was taken in multiple views. The left ventricle was not crossed given the patient has known severe aortic stenosis with preserved ejection fraction. The patient tolerated the procedure well without complications. Estimated blood loss less than 20 cc. Total contrast used 60 cc. The right radial access site was closed with a TR band. RESULTS The aortic pressure was 106/58 with a mean of 78. ANGIOGRAPHY 1. The right coronary artery is a dominant vessel giving off the PDA. This is a big vessel measuring more than 3.5 mm proximally. It has minimal luminal irregularities with no significant obstructions. 2. The left main is a short with mild calcifications present. 3. The LAD is a transapical vessel. It is minimally calcified in the proximal segment. It gives off two diagonal vessels which are patent with YULIET-III flow. 4. The left circumflex artery is patent with nonobstructive coronary artery disease, giving off two main OM branches which are also patent with YULIET-III flow. CONCLUSIONS 1. Severe symptomatic aortic stenosis. 2. Nonobstructive coronary artery disease. RECOMMENDATIONS The patient will be consulted to CT surgery for mini AVR. MD ELLE Melgoza/SHONA /9:17 AM /9:27 AM
[2016-08-04] MEDS ORDERED: MISC INFORMATION XX ONE (10:00)
--- NOTE | 2016-08-04 12:39 | EKG ---
Date Performed: 08/04/2016 Time Performed: 07:31:38 PTAGE: 81 years EKG: Possible ectopic atrial rhythm Left axis deviation Left bundle branch block Abnormal ECG PREVIOUS TRACING : 07/02/2016 15.07 DOCTOR: Cuong Bagley Interpretating Date/Time 08/04/2016 12:38:41
[2016-08-04] MEDS ORDERED: IOHEXOL 350 MG/ML 10 ML VIAL (for RAD DIAG) IV ONE (13:12)
--- NOTE | 2016-08-04 17:54 | MB ---
cc: STORM GARCIA,EUGENE RANGLE,MAIA Mccabe MD DATE OF CONSULTATION 08/04/[address] Eugene Cuevas. REASON FOR CONSULTATION Symptomatic aortic stenosis. PRIMARY CARE PHYSICIAN Dr. Storm Garcia HISTORY OF THE PRESENT ILLNESS Mr. Hutchinson is a very pleasant 81-year gentleman with known history of progressive severe aortic stenosis. The patient now presents with progressive dyspnea on exertion with minimal exertion and associated shortness of breath. Further workup including an echocardiogram has revealed a severe aortic stenosis as described above with estimated aortic valve area 0.76 cm2 with associated mild to moderate aortic insufficiency and a relatively preserved ventricular function with EF of 50%. He underwent a coronary angiogram today which revealed normal epicardial coronary arteries with no identifiable disease. I am now being consulted for surgical aortic valve replacement. At present time he remains relatively comfortable, hemodynamically stable and without any shortness of breath at rest. PAST MEDICAL HISTORY Significant for: 1. Severe aortic stenosis as described above. 2. Carotid artery disease. 3. Hyperlipidemia. 4. Hypertension. 5. History of neck disease. 6. Cervical neck fusion. PAST SURGICAL HISTORY Remarkable for: 1. Neck surgery with a vertebral fusion in the cervical neck. 2. Renal transplantation. 3. Rotator cuff. ROTATOR CUFF The patient reports no known drug allergies. MEDICATIONS Current medications include: 1. Amlodipine. 2. Baby aspirin. 3. Atorvastatin. 4. Co-Q10 with omega 3 fish oil. 5. Lasix. 6. Metoprolol. 7. Pantoprazole. 8. Potassium chloride. 9. Testosterone. 10. Vitamins and supplements. SOCIAL HISTORY He is a former smoker of two packs per day which he quit in 1980. Denies any excessive alcohol use or illicit drug use. He does admit 2-3 drinks per day including beer, wine and bourbon. FAMILY HISTORY Significant diabetes, coronary artery disease and heart rhythm abnormalities. REVIEW OF SYSTEMS As above. All other parameters are negative. PHYSICAL EXAMINATION VITAL SIGNS: On physical examination today he is 182 cm tall and weighs 95 kilos. Blood pressure is 149/87 with a heart rate of 81 which is regular, respiratory rate is 18, afebrile. HEENT: Normocephalic, atraumatic. Pupils round and reactive. Extraocular muscles intact. NECK: No cervical lymphadenopathy, carotid bruits or JVD. CARDIOVASCULAR: Regular rate and rhythm. Normal S1-S2 without gallops or rubs. There is a 04/06 systolic ejection murmur. LUNGS: Clear to auscultation bilaterally with good exchange. ABDOMEN: Soft, nontender, nondistended. Normoactive bowel sounds. No hepatosplenomegaly. EXTREMITIES: Bilateral lower extremity pulses are intact without clubbing, cyanosis or edema. No venous varicosities. NEUROLOGIC: Intact with no focal deficits. IMPRESSION 1. Severe aortic stenosis. 2. Hypertension. 3. Hyperlipidemia. 4. Severe cervical neck disease with fusion. PLAN The clinical, echo as well as the angiographic findings were discussed in detail with Mr. Hutchinson today. Therapeutic options available including aortic valve replacement through a minimally invasive approach was recommended. The risks, complications and benefits to the surgical procedure were discussed in detail. All questions answered. He comprehended the information. At this point he wishes to discuss it further with his and his daughter who is a recovery room nurse at [employer] in terms of deciding further therapies for his aortic pathology. He did inquire about TAVR considerations, however, at this point is not decided whether he is ready to pursue surgical therapy or not. Again, he will call us back once he has had a formal discussion with his family in terms of how to proceed further with regards to surgical intervention for his aortic pathology. Thank you for allowing me to participate in this patient. Maia VILLALOBOS /4:07 PM /5:35 PM
--- NOTE | 2016-08-09 09:43 | RSPPFT ---
DATE OF PROCEDURE: 08/04/16 COMMENTS: Spirometry with FVC of 1.2, FEV1 of 1.0, FEV1/FVC ratio at 86%. IMPRESSION: 1. Decreased flow rates. 2. No gross obstruction. 3. Possible airways restriction. 4. If clinically warranted, lung volumes may be helpful.
--- NOTE | 2016-08-10 09:51 | RADRPT ---
EXAM DATE/TIME: 08/04/2016 12:46 [facility] COMPARISON: No previous studies available for comparison. INDICATIONS : Coronary disease. RADIATION DOSE: 44.74 CTDIvol (mGy) MEDICAL HISTORY : Cardiovascular disease. Hypertension. SURGICAL HISTORY : None. ENCOUNTER: Initial ACUITY: 1 day PAIN SCALE: 0/10 LOCATION: cranial TECHNIQUE: Volumetric scanning was performed using a multi-row detector CT scanner. The data was post processed with a variety of visualization algorithms including full volume maximum intensity projection, multi -planar sliding thin slab reformation, curved planar reformation, and surface rendering techniques. Using automated exposure control and adjustment of the mA and/or kV according to patient size, radiat ion dose was kept as low as reasonably achievable to obtain optimal diagnostic quality images. FINDINGS: Moderate atherosclerotic vascular disease is present throughout the aorta. There is calcified eccentr ic plaque without evidence of ulceration, stenosis or aneurysmal enlargement.The aortic valve is heav lakia calcified. Significant calcification and luminal irregularity is present in the coronary arteries. Three-vessel origin of the great vessels is noted. There is no evidence of ostial stenosis. Moderate stenosis is seen at the origin of the celiac artery measuring approximately 50%. A moderate to severe stenosis in the 50-69% range is seen at the origin of the superior mesenteric ar steffen. Calcified plaque is seen at the origin of both renal arteries. The left renal artery demonstrates sig nificant luminal narrowing in the 50-69% range. The common iliacs, external iliacs and common femoral arteries are widely patent and normal in size. A 7.3 mm pleural-based nodule with linear attachment to the pleural is identified in the superior seg ment of the left lower lobe. Mild scar versus atelectasis is seen in the right lower lobe. Lungs are otherwise clear. Penile prosthesis with right pelvic reservoir is noted in place. The liver, spleen, adrenal glands, pancreas and intestinal tract are unremarkable. A few scattered di verticula are seen. Cortical thinning and scarring is seen in both kidneys. There is no evidence of hydronephrosis. CONCLUSION: Calcific atherosclerotic vascular disease with hemodynamically significant stenoses identified in the superior mesenteric artery and left renal artery. Calcific aortic valvular disease. Significant coronary artery calcification. No evidence of aortic aneurysm, stenosis or ulcerated plaque. 7.3 mm pleural-based nodule in the superior segment of the left lower lobe. Surveillance is recommend ed with followup scan in 6 months. Bilateral renal cortical thinning and scarring. Dennis Cortes MD on August 10, 2016 at 9:26 Board Certified Radiologist. This report was verified electronically.
== END 2016-08-04 14:54 | disposition home or self-care (01) ==
LOC: HDOC 06:45 → HDIC 06:46 → HDOC 14:54
PROVIDERS: ATTEND Radiology Vascular & Interventional Radiology
DX: I35.0 Nonrheumatic aortic (valve) stenosis (principal); I25.10 Atherosclerotic heart disease of native coronary artery without angina pectoris; Z87.891 Personal history of nicotine dependence; I10 Essential (primary) hypertension; E78.5 Hyperlipidemia, unspecified; Z01.818 Encounter for other preprocedural examination
CPT/HCPCS: 74174; 80048; 85025; 85610; 85730; 93005; 93454; 94010; C1769; C1893; J1644; J2250; J3010; Q9967

== ENCOUNTER 2016-11-01 03:52 | Inpatient (IN) | payer OTHER, MEDICARE ==
[2016-11-01] VITALS (23 sets, daily range): BP systolic 100–142; BP diastolic 58–80; PULSE 70–131; RESP 16–20; TEMP 97.6–98.6; O2SAT 95–100
[~2016-11-01] VITALS: Ht 180.3 cm; Wt 88.3 kg
[~2016-11-01 03:52] MED LIST changes: -CIPR500T2 PO; -I-VITAB2; -MULTTAB23; +OCUVTAB4 PO; -OMEG5CAP PO; -VITA100021 SL; -VITA200012 PO
[2016-11-01] MEDS ORDERED: CYAN1TAB24 (04:26)
[2016-11-01] MEDS ORDERED: APIX2.5T PO (04:26)
[2016-11-01] MEDS ORDERED: ADVA100A INH (04:26)
[2016-11-01] MEDS ORDERED: LISI10TA3 PO (04:26)
[2016-11-01] MEDS ORDERED: DILT90TA PO (04:26)
[2016-11-01] MEDS ORDERED: SODIUM CHLOR 0.9% 1000 ML INJ 1,000 ML IV ONE (04:45)
[2016-11-01] MEDS ORDERED: ONDANSETRON HCL 4 MG/2 ML VIAL IV PUSH ONE (04:45)
--- NOTE | 2016-11-01 04:47 | PD ---
HPI Chief Complaint: GI Complaint Time Seen by Provider: 04:25 Travel History International Travel<30 days: No Contact w/Intl Traveler<30days: No Traveled to known affect area: No History of Present Illness HPI 81-year-old male complains of abdominal pain with nausea vomiting. Patient states that the symptoms started 2 days ago. Patient states the pain cramping pain localized to lower abdomen. Patient denies any pain radiation. Patient denies any fever chills. Patient denies any headache. Patient denies any chest pain or shortness of breath. Patient denies any dysuria or frequency. Patient has history of CHF, hypertension, rheumatic fever, COPD, aortic stenosis status post AVR September 02, 2016. Patient has history of atrial fibrillation on September 19 and . Patient was given Cardizem and Eliquis. Patient converted to sinus rhythm until this evening when he started having palpitations again. Patient states that he has history of small bowel obstruction the past that resolved with bowel rest and NG tube. PFSH Past Medical History Hx Anticoagulant Therapy: Yes (Eliquis 2.5mg) Cardiovascular Problems: Yes (HTN, murmor, aortic valve replacement) High Cholesterol: Yes Congestive Heart Failure: Yes COPD: Yes Diminished Hearing: Yes (BILATERAL HEARING AIDS) Hypertension: Yes Inguinal Hernia: Yes (hernia repair) Immunizations Current: Yes Tetanus Vaccination: > 5 Years Influenza Vaccination: Yes Past Surgical History Cardiac Surgery: Yes (AVR) Social History Alcohol Use: Yes (Daily) Tobacco Use: No Substance Use: No Allergies-Medications (Allergen,Severity, Reaction): Coded Allergies: No Known Allergies (Unverified , 11/01/16) Reported Meds & Prescriptions Reported Meds & Active Scripts Active Reported Eliquis (Apixaban) 2.5 Mg Tab 2.5 Mg PO BID Lisinopril 10 Mg Tab 10 Mg PO DAILY Diltiazem (Diltiazem HCl) 90 Mg Tab 180 Mg PO DAILY B12 (Cyanocobalamin) 1,000 Mcg Tab Advair Diskus Inh (Fluticasone-Salmeterol Inh) 100-50 Mcg/Blist Aer 1 Puff INH BID Rinse mouth after use. Preservision Areds (Multiple Vitamins W/ Minerals) 1 Tab 1 Tab PO DAILY Metoprolol Tartrate 25 Mg Tab 25 Mg PO BID Atorvastatin (Atorvastatin Calcium) 20 Mg Tab 20 Mg PO DAILY Review of Systems General / Constitutional: No: Fever Eyes: No: Visual changes HENT: No: Headaches Cardiovascular: Positive: Palpitations, No: Chest Pain or Discomfort Respiratory: No: Shortness of Breath Gastrointestinal: Positive: Nausea, Vomiting, Abdominal Pain Genitourinary: No: Dysuria Musculoskeletal: No: Pain Skin: No Rash Neurologic: No: Weakness Psychiatric: No: Depression Endocrine: No: Polydipsia Hematologic/Lymphatic: No: Easy Bruising Physical Exam Narrative GENERAL: Well-nourished, well-developed patient. SKIN: Focused skin assessment warm/dry. HEAD: Normocephalic. EYES: No scleral icterus. No injection or drainage. NECK: Supple, trachea midline. No JVD or lymphadenopathy. CARDIOVASCULAR: Irregular irregular rate and rhythm without murmurs, gallops, or rubs. RESPIRATORY: Breath sounds equal bilaterally. No accessory muscle use. GASTROINTESTINAL: Abdomen soft, non-tender, nondistended. MUSCULOSKELETAL: No cyanosis, or edema. BACK: Nontender without obvious deformity. No CVA tenderness. Neurologic exam normal. Data Data Last Documented VS Vital Signs Date Time Temp Pulse Resp B/P Pulse Ox O2 Delivery O2 Flow Rate FiO2 11/01/16 07:15 128 18 109/71 99 Room Air 11/01/16 04:56 2 11/01/16 03:53 98.1 Orders Sodium Chlor 0.9% 1000 Ml Inj (Ns 1000 M (11/01/16 04:45) Ondansetron Inj (Zofran Inj) (11/01/16 04:45) Electrocardiogram (11/01/16 04:38) Complete Blood Count With Diff (11/01/16 04:38) Comprehensive Metabolic Panel (11/01/16 04:38) Creatine Kinase (Cpk) (11/01/16 04:38) Troponin I (11/01/16 04:38) B-Type Natriuretic Peptide (11/01/16 04:38) Prothrombin Time / Inr (Pt) (11/01/16 04:38) Act Partial Throm Time (Ptt) (11/01/16 04:38) Urinalysis - C+S If Indicated (11/01/16 04:38) Thyroid Stimulating Hormone (11/01/16 04:38) Chest, Single Ap (11/01/16 04:38) Iv Access Insert/Monitor (11/01/16 04:38) Ecg Monitoring (11/01/16 04:38) Oximetry (11/01/16 04:38) Sodium Chlor 0.9% 1000 Ml Inj (Ns 1000 M (11/01/16 05:15) Diltiazem Inj (Cardizem Inj) (11/01/16 05:15) Vital Signs (Adult) Q15MX4,Q4H (11/01/16 05:16) Trimming Cutter / Telemetry BRENNEN.Q8H (11/01/16 05:16) Cardiac Rhythm BRENNEN.Q8H (11/01/16 05:16) Notify Dr: Other (11/01/16 05:16) Diltiazem Inj (Cardizem Inj) (11/01/16 05:30) Ct Abd/Pel W Iv Contrast(Rout) (11/01/16 05:22) Iohexol 350 Inj (Omnipaque 350 Inj) (11/01/16 06:24) Consult Cardiology (11/01/16 ) Admit Order (Ed Use Only) (11/01/16 07:29) Labs Laboratory Tests Test 11/01/16 04:30 White Blood Count 3.5 TH/MM3 Red Blood Count 5.20 MIL/MM3 Hemoglobin 13.4 GM/DL Hematocrit 41.6 % Mean Corpuscular Volume 80.0 FL Mean Corpuscular Hemoglobin 25.8 PG Mean Corpuscular Hemoglobin 32.3 % Concent Red Cell Distribution Width 17.3 % Platelet Count 175 TH/MM3 Mean Platelet Volume 8.0 FL Neutrophils (%) (Auto) 65.2 % Lymphocytes (%) (Auto) 16.5 % Monocytes (%) (Auto) 17.3 % Eosinophils (%) (Auto) 0.5 % Basophils (%) (Auto) 0.5 % Neutrophils # (Auto) 2.3 TH/MM3 Lymphocytes # (Auto) 0.6 TH/MM3 Monocytes # (Auto) 0.6 TH/MM3 Eosinophils # (Auto) 0.0 TH/MM3 Basophils # (Auto) 0.0 TH/MM3 CBC Comment DIFF FINAL Differential Comment Prothrombin Time 13.2 SEC Prothromb Time International 1.2 RATIO Ratio Activated Partial 32.4 SEC Thromboplast Time Sodium Level 138 MEQ/L Potassium Level 4.1 MEQ/L Chloride Level 96 MEQ/L Carbon Dioxide Level 29.2 MEQ/L Anion Gap 13 MEQ/L Blood Urea Nitrogen 28 MG/DL Creatinine 1.46 MG/DL Estimat Glomerular Filtration 46 ML/MIN Rate Random Glucose 153 MG/DL Calcium Level 9.9 MG/DL Total Bilirubin 1.1 MG/DL Aspartate Amino Transf 15 U/L (AST/SGOT) Alanine Aminotransferase 25 U/L (ALT/SGPT) Alkaline Phosphatase 107 U/L Total Creatine Kinase 74 U/L Troponin I LESS THAN 0.02 NG/ML B-Type Natriuretic Peptide 556 PG/ML Total Protein 8.0 GM/DL Albumin 3.8 GM/DL Thyroid Stimulating Hormone 2.430 uIU/ML 3rd Gen [facility] Medical Decision Making Medical Screen Exam Complete: Yes Emergency Medical Condition: Yes Interpretation(s) Last Impressions Chest X-Ray 11/01/16 0438 Signed Impressions: Service Date/Time: Tuesday, November 01, 2016 05:20 - CONCLUSION: No acute disease. Enzo Lang MD 6:42 AM. CBC WBC 3.5. Hemoglobin 13.4 hematocrit 41.6. BUN 28. Creatinine 1.46. GFR 46. Cardiac enzymes are normal. BMP 556. INR 1.2. Differential Diagnosis Differential diagnosis including gastritis, PUD, pancreatitis, cholecystitis, colitis, UTI, pyelonephritis, nephrolithiasis, bowel obstruction, A. fib with RVR, SVT. Narrative Course 81-year-old male with abdominal pain nausea vomiting. Patient also has history of atrial fibrillation and on Eliquis. Normal saline solution 100 cc an hour. I spoke with Dr. River, covering for Dr. Sanchez. Advised Cardizem. Cardizem 10 mg IV. Cardizem drip started. Patient was informed that he has small bowel obstruction. Patient refused NG tube. Diagnosis Primary Impression: Small bowel obstruction Additional Impressions: Atrial fibrillation with RVR Renal insufficiency Admitting Information Admitting Physician Requests: Admit Lalo Domínguez MD Nov 01, 2016 04:47 Lalo Domínguez MD Nov 01, 2016 04:47
[2016-11-01] MEDS: SODIUM CHLOR 0.9% 1000 ML INJ 1,000 ML IV SCH ×2 (05:12→15:13)
[2016-11-01 05:14] LABS: AUTOMATED NEUTROPHIL # 2.3 TH/MM3 (1.8-7.7); BASOPHIL % 0.5 % (0.0-2.0); EOSINOPHIL % 0.5 % (0.0-4.0); HEMATOCRIT 41.6 % (39.0-51.0); HEMO FLAGS DIFF FINAL; LYMPH % 16.5 % (9.0-44.0); LYMPHOCYTE # 0.6 TH/MM3 (1.0-4.8); MEAN CORPUSCULAR HEMOGLOBIN 25.8 PG (27.0-34.0); MEAN CORPUSCULAR HGB CONC 32.3 % (32.0-36.0); MONO % 17.3 % (0.0-8.0); NEUT % 65.2 % (16.0-70.0); PLATELET COUNT 175 TH/MM3 (150-450); RED CELL DISTRIBUTION WIDTH 17.3 % (11.6-17.2); WHITE BLOOD COUNT 3.5 TH/MM3 (4.0-11.0)
[2016-11-01] MEDS ORDERED: DILTIAZEM HCL 25 MG/5 ML VIAL IV ONE (05:15)
[2016-11-01] MEDS ORDERED: DILTIAZEM INJ 125 MG in SODIUM CHLORIDE 0.9% INJ 100 ML IV SCH ×2 (05:30→11:15)
[2016-11-01 05:38] LABS: ANION GAP 13 MEQ/L (5-15); AST (GOT) 15 U/L (15-37); BICARBONATE 29.2 MEQ/L (21.0-32.0); BLOOD UREA NITROGEN 28 MG/DL (7-18); CHLORIDE 96 MEQ/L (98-107); GLOMERULAR FILTRATION RATE 46 ML/MIN (>89); POTASSIUM 4.1 MEQ/L (3.5-5.1); SODIUM (NA) 138 MEQ/L (136-145)
[2016-11-01 05:48] LABS: ALKALINE PHOSPHATASE 107 U/L (45-117); ALT (GPT) 25 U/L (12-78); TOTAL BILIRUBIN ADULT 1.1 MG/DL (0.2-1.0)
--- NOTE | 2016-11-01 05:50 | RADRPT ---
EXAM DATE/TIME: 11/01/2016 05:20 [facility] COMPARISON: CHEST SINGLE AP, July 02, 2016, 4:56. INDICATIONS : Short of breath. MEDICAL HISTORY : Hypertension. Congestive heart failure. SURGICAL HISTORY : CABG. ENCOUNTER: Initial ACUITY: 1 day PAIN SCORE: 0/10 LOCATION: Bilateral chest FINDINGS: A single view of the chest demonstrates the lungs to be symmetrically aerated without evidence of mas s, infiltrate or effusion. The cardiomediastinal contours are unremarkable. Osseous structures are intact. The patient is status post median sternotomy. Atherosclerotic changes are present in the aort a. There is mild scarring at the left lung base. CONCLUSION: No acute disease. Enzo Lang MD on November 01, 2016 at 5:48 Board Certified Radiologist. This report was verified electronically.
[2016-11-01 05:51] LABS: CREATINE KINASE 74 U/L (39-308)
[2016-11-01 06:00] LABS: APTT (PATIENT) 32.4 SEC (24.3-30.1); INTERNATIONAL NORMALIZED RATIO 1.2 RATIO; PROTHROMBIN TIME - PATIENT 13.2 SEC (9.8-11.6)
[2016-11-01] MEDS ORDERED: IOHEXOL 350 MG/ML 10 ML VIAL (for RAD DIAG) IV ONE (06:24)
--- NOTE | 2016-11-01 06:37 | RADRPT ---
EXAM DATE/TIME: 11/01/2016 06:22 [facility] COMPARISON: No previous studies available for comparison. INDICATIONS : Lower quadrant abdominal pain with nausea and vomiting. IV CONTRAST: 95 cc Omnipaque 350 (iohexol) IV ORAL CONTRAST: No oral contrast ingested. RADIATION DOSE: 16.70 CTDIvol (mGy) MEDICAL HISTORY : Hypertension. Congestive heart failure. Chronic obstructive pulmonary disease. SURGICAL HISTORY : Inguinal hernia repair. Aortic valve replacement. ENCOUNTER: Initial ACUITY: 1 day PAIN SCALE: 7/10 LOCATION: Bilateral lower quadrant TECHNIQUE: Volumetric scanning of the abdomen and pelvis was performed. Using automated exposure control and ad justment of the mA and/or kV according to patient size, radiation dose was kept as low as reasonably achievable to obtain optimal diagnostic quality images. DICOM format image data is available electro nically for review and comparison. FINDINGS: LOWER LUNGS: The visualized lower lungs are clear. LIVER: Homogeneous density without lesion. There is no dilation of the biliary tree. No calcified gallston es. SPLEEN: Normal size without lesion. PANCREAS: Within normal limits. KIDNEYS: Normal in size and shape. There is no mass, stone or hydronephrosis. ADRENAL GLANDS: Within normal limits. VASCULAR: There is no aortic aneurysm. BOWEL/MESENTERY: There is an abnormal bowel gas pattern with multiple loops of mildly prominent small bowel with multi ple air-fluid levels. No focal transition point or mass is identified. The colon is decompressed. The re is no free air or fluid. There is scattered diverticuli in the colon with no focal inflammatory ch khanh. ABDOMINAL WALL: Within normal limits. RETROPERITONEUM: There is no lymphadenopathy. BLADDER: No wall thickening or mass. REPRODUCTIVE: A penile prosthesis is present with reservoir in the right lower pelvis. INGUINAL: There is no lymphadenopathy or hernia. MUSCULOSKELETAL: Within normal limits for patient age. CONCLUSION: 1. Abnormal bowel gas pattern of concern for distal small bowel obstruction. 2. No free air or fluid. 3. Mild diverticulosis. Enzo Lang MD on November 01, 2016 at 6:31 Board Certified Radiologist. This report was verified electronically.
[2016-11-01] MEDS ORDERED: NALOXONE HCL 0.4 MG/ML AMP IV PRN (08:00)
[2016-11-01] MEDS ORDERED: BISACODYL 10 MG SUPP RECTAL PRN (08:00)
[2016-11-01] MEDS ORDERED: LACTULOSE SYRUP 20 GM/30 ML CUP PO PRN (08:00)
[2016-11-01] MEDS ORDERED: AMIODARONE INJ 150 MG in DEXTROSE 5% IN WATER 100ML INJ 97 ML IV ONE ×2 (08:00)
[2016-11-01] MEDS ORDERED: AMIODARONE INJ 450 MG in DEXTROSE 5% IN WATE(EXCEL) INJ 241 ML IV SCH ×2 (08:00)
[2016-11-01] MEDS ORDERED: MAGNESIUM HYDROXIDE SUSP 30 ML CUP PO PRN (08:00)
[2016-11-01] MEDS ORDERED: SENNOSIDES 8.6 MG TAB PO PRN (08:00)
[2016-11-01] MEDS: ONDANSETRON HCL 4 MG/2 ML VIAL IVP PRN ×3 (08:24→21:55)
--- NOTE | 2016-11-01 08:46 | MB ---
cc: NAOMIE JOHNSON MD DATE OF CONSULTATION: 11/01/2016 REASON FOR CONSULTATION Atrial fibrillation. HISTORY OF PRESENT ILLNESS Mr. Hutchinson is a 81-year-old man who is status post AVR in September of this year. He also has a history of atrial fibrillation and CHF with an EF of 30-35% by echo in September. The patient apparently has had several prior small bowel obstructions and presented with complaints of abdominal pain, nausea and vomiting after laying some sod this weekend. He was also found to be in atrial fibrillation with RVR and cardiology was subsequently consulted. PAST MEDICAL HISTORY/SURGICAL HISTORY Significant for: 1. Hypertension. 2. Hyperlipidemia. 3. COPD. 4. Aortic valve replacement. 5. Inguinal hernia repair. 6. COPD. 7. BPH. SOCIAL HISTORY The patient does drink daily. He does not smoke. FAMILY HISTORY Positive for late FL. ALLERGIES NO KNOWN DRUG ALLERGIES. OUTPATIENT MEDICATIONS Include: 1. Eliquis 2.5 mg p.o. b.i.d. 2. Lisinopril. 3. Cardizem 180 mg a day. 4. Metoprolol 25 mg b.i.d. 5. Atorvastatin. REVIEW OF SYSTEMS Except as mentioned in the HPI, all 12 systems are negative. PHYSICAL EXAMINATION VITAL SIGNS: 128, 18, 109/71. GENERAL: He is an overweight man who is in no apparent distress. NECK: His neck is free from JVD. LUNGS: Lungs are bilaterally clear to auscultation. CARDIOVASCULAR: On cardiovascular examination he has a normal S1 and S2. There is a 2/6 systolic murmur. No rubs or gallops are appreciated. ABDOMEN: Soft. EXTREMITIES: Extremities have trace amount of edema. LABORATORY DATA Lab values significant for a creatinine of 1.46, troponin-I of 0.02 and a BNP of 556. Telemetry - shows atrial fibrillation with rapid ventricular rate. IMAGING STUDIES Chest x-ray from November 01 is negative for any acute process. Abdominal CT shows abnormal bowel gas pattern concerning for small bowel obstruction. IMPRESSION Atrial fibrillation with rapid ventricular rate - the patient does have a history of the same. He has been fairly well maintained on the Cardizem and metoprolol p.o., per the daughter. Currently he is on max dose of Cardizem drip and has had some IV fluids with little improvement on his rate. In light of the fact that he is already on beta-buck, calcium channel buck and has a small bowel obstruction, I am going to add the amiodarone. Regarding his anticoagulation the Eliquis will be held at this time, again in light of his small bowel obstruction. In the next day or so I would start back his Lovenox. Cardiomyopathy - his baseline EF is about 30%. This will be difficult to manage with a small bowel obstruction and some renal insufficiency. Nonetheless, I think some low-dose diuretics would be beneficial at this time. The patient's EF is mild to moderately reduced. Beta-blockers and UZIEL inhibitors are felt relatively contraindicated at this time with his relative hypotension. Small bowel obstruction - this will be managed by the primary team. Naomie Johnson M.D. PAVEL/TLL /8:13 AM /8:27 AM
--- NOTE | 2016-11-01 09:00 | HHI.HP ---
HPI Service [facility] Hospitalists Primary Care Physician Rena Lynne MD Admission Diagnosis small bowel obstruction. Atrial fibrillation with RVR. Diagnoses: Chief Complaint: Nausea vomiting Lower abdominal pain Palpitations Shortness of breath Travel History International Travel<30 Days: No Contact w/Intl Traveler <30 Da: No Traveled to Known Affected Are: No History of Present Illness Written by Shahnaz Carvajal PA-C acting as scribe for Dr. Domínguez on 11/01/16 at 08:37. This 81-year-old male with a past medical history significant for previous small bowel obstruction 2, hypertension, aortic stenosis status post aVR replacement 09/02/16, dyslipidemia, CHF and COPD who presents to [facility] ED with complaints of lower abdominal pain with associated nausea and vomiting for the past 2 days. Patient states that symptoms began after he laid a large amount of sod in his yard. He's had 2 other small bowel obstructions that occurred after he performed activities while being bent down on the ground such as when laying tile. His previous small bowel obstructions have resolved without surgical intervention. He was only able to eat a piece of toast yesterday. He also reports yesterday he developed palpitations. He denies any associated chest pain. He does states he had some shortness of breath this morning. He denies any recent illness. He denies any complaints of cough, fever or chills. He denies any dizziness or vision changes. He is unable to urinate since 11:00 last night. He reports constipation and states he has not had a bowel movement since Tuesday. In the ED, patient was found to be in atrial fibrillation with RVR with a heart rate of 130. Patient was started on a Cardizem drip. He was seen by his maintenance mgr Dr. Daniel marroquin who has placed orders to change to amiodarone drip. Review of Systems Constitutional: DENIES: Diaphoretic episodes, Fever, Chills Endocrine: DENIES: Polyuria Eyes: DENIES: Blurred vision, Double Vision Ears, nose, mouth, throat: COMPLAINS OF: Hearing loss Respiratory: COMPLAINS OF: Shortness of breath (some SOB that started this am) , DENIES: Cough Cardiovascular: COMPLAINS OF: Palpitations, DENIES: Chest pain Gastrointestinal: COMPLAINS OF: Abdominal pain, Constipation (no BM since Tuesday and normally patient goes daily), Nausea (N/V ongoing since Tuesday), Vomiting Except as stated in HPI: all other systems reviewed are Neg Past Family Social History Past Medical History History of atrial fibrillation with RVR previously in NSR, on Eliquis History of small bowel obstruction 2 in the past CAD Aortic stenosis s/p AVR replacement 09/02/16 CHF Hypertension History of rheumatic fever COPD Dyslipidemia Past Surgical History ACDF multiple level Hernia repair Right big toe spur removal Penile implant Exploratory laparotomy with appendectomy Reported Medications Eliquis (Apixaban) 2.5 Mg Tab 2.5 Mg PO BID Lisinopril 10 Mg Tab 10 Mg PO DAILY Diltiazem (Diltiazem HCl) 90 Mg Tab 180 Mg PO DAILY B12 (Cyanocobalamin) 1,000 Mcg Tab Advair Diskus Inh (Fluticasone-Salmeterol Inh) 100-50 Mcg/Blist Aer 1 Puff INH BID Rinse mouth after use. Preservision Areds (Multiple Vitamins W/ Minerals) 1 Tab 1 Tab PO DAILY Metoprolol Tartrate 25 Mg Tab 25 Mg PO BID Atorvastatin (Atorvastatin Calcium) 20 Mg Tab 20 Mg PO DAILY Allergies: Coded Allergies: No Known Allergies (Unverified , 11/01/16) Active Ordered Medications Current Medications Medications (Trade) Dose Ordered Sig/Maribel Route Start Time Stop Time Status Last Admin (NS 1000 ml Inj) 1,000 ml @ 100 mls/hr Q10H IV 11/01/16 05:15 11/01/16 05:12 (Zofran Inj) 4 mg Q6H PRN IVP 11/01/16 08:00 11/01/16 08:24 (Narcan Inj) 0.4 mg UNSCH PRN IV 11/01/16 08:00 (Milk Of Magnesia Liq) 30 ml Q12H PRN PO 11/01/16 08:00 (Senokot) 17.2 mg Q12H PRN PO 11/01/16 08:00 (Dulcolax Supp) 10 mg DAILY PRN RECTAL 11/01/16 08:00 Lactulose 30 ml 30 ml DAILY PRN PO 11/01/16 08:00 Amiodarone HCl 150 mg/Dextrose 100 ml @ 100 mls/hr ONCE ONCE IV 11/01/16 08:00 11/01/16 08:59 11/01/16 08:28 (Cordarone Inj/ D5W ([place]) Inj) 250 ml @ 0 mls/hr CONTINUOUS IV 11/01/16 08:00 (Lasix Inj) 20 mg BID IV PUSH 11/01/16 09:00 UNV Family History Diabetes Coronary artery disease Asthma Social History Patient has a remote history of tobacco use having quit in 1980. He reports alcohol consumption of 2-3 drinks daily. He denies any illicit drug use. Physical Exam Vital Signs Vital Signs Date Time Temp Pulse Resp B/P Pulse Ox O2 Delivery O2 Flow Rate FiO2 11/01/16 07:55 99 21 11/01/16 07:15 128 18 109/71 99 Room Air 11/01/16 06:49 127 106/69 11/01/16 06:31 126 104/60 11/01/16 05:40 130 110/62 11/01/16 05:30 131 101/58 11/01/16 05:22 127 18 100/60 100 Room Air 11/01/16 04:56 95 2 11/01/16 03:53 98.1 112 20 126/70 96 Room Air Physical Exam GENERAL: This is a well-nourished, well-developed patient, in no apparent distress. Awake and alert. Daughter is at the bedside. SKIN: No rashes, ecchymoses or lesions. Cool and dry. HEAD: Atraumatic. Normocephalic. No temporal or scalp tenderness. EYES: Pupils equal round and reactive. Extraocular motions intact. No scleral icterus. No injection or drainage. ENT: Nose without bleeding or purulent drainage. Throat without erythema, tonsillar hypertrophy or exudate. Uvula midline. Airway patent. NECK: Trachea midline. No JVD or lymphadenopathy. Supple, nontender, no meningeal signs. CARDIOVASCULAR: Irregular. Tachycardic. RESPIRATORY: Clear to auscultation. Breath sounds equal bilaterally. No wheezes , rales, or rhonchi. GASTROINTESTINAL: Abdomen soft, nondistended. (+) Diffuse tenderness palpation. No hepato-splenomegaly, or palpable masses. No guarding. MUSCULOSKELETAL: Extremities without clubbing, cyanosis, or edema. No joint tenderness, effusion, or edema noted. No calf tenderness. NEUROLOGICAL: Awake and alert. Able to move all extremities. Normal speech. Laboratory Laboratory Tests Test 11/01/16 04:30 White Blood Count 3.5 Red Blood Count 5.20 Hemoglobin 13.4 Hematocrit 41.6 Mean Corpuscular Volume 80.0 Mean Corpuscular Hemoglobin 25.8 Mean Corpuscular Hemoglobin 32.3 Concent Red Cell Distribution Width 17.3 Platelet Count 175 Mean Platelet Volume 8.0 Neutrophils (%) (Auto) 65.2 Lymphocytes (%) (Auto) 16.5 Monocytes (%) (Auto) 17.3 Eosinophils (%) (Auto) 0.5 Basophils (%) (Auto) 0.5 Neutrophils # (Auto) 2.3 Lymphocytes # (Auto) 0.6 Monocytes # (Auto) 0.6 Eosinophils # (Auto) 0.0 Basophils # (Auto) 0.0 CBC Comment DIFF FINAL Differential Comment Prothrombin Time 13.2 Prothromb Time International 1.2 Ratio Activated Partial 32.4 Thromboplast Time Sodium Level 138 Potassium Level 4.1 Chloride Level 96 Carbon Dioxide Level 29.2 Anion Gap 13 Blood Urea Nitrogen 28 Creatinine 1.46 Estimat Glomerular Filtration 46 Rate Random Glucose 153 Calcium Level 9.9 Total Bilirubin 1.1 Aspartate Amino Transf 15 (AST/SGOT) Alanine Aminotransferase 25 (ALT/SGPT) Alkaline Phosphatase 107 Total Creatine Kinase 74 Troponin I LESS THAN 0.02 B-Type Natriuretic Peptide 556 Total Protein 8.0 Albumin 3.8 Thyroid Stimulating Hormone 2.430 3rd Gen Result Diagram: 11/01/1642911/01/16429 Imaging Last Impressions Abdomen/Pelvis CT 11/01/16 0522 Signed Impressions: Service Date/Time: Tuesday, November 01, 2016 06:22 - CONCLUSION: 1. Abnormal bowel gas pattern of concern for distal small bowel obstruction. 2. No free air or fluid. 3. Mild diverticulosis. Enzo Lang MD Chest X-Ray 11/01/16 0438 Signed Impressions: Service Date/Time: Tuesday, November 01, 2016 05:20 - CONCLUSION: No acute disease. Enzo Lang MD Assessment and Plan Assessment and Plan 81-year-old male with a past medical history significant for previous small bowel obstruction 2, hypertension, aortic stenosis status post aVR replacement 09/02/16, dyslipidemia, CHF and COPD who presents to [facility] ED with complaints of lower abdominal pain with associated nausea and vomiting for the past 2 days. He was found to be in atrial fibrillation with RVR with a heart rate of 130 and was started on Cardizem drip. Atrial fibrillation with RVR - Patients heart rate is currently 127 - TSH 2.430. Troponin 0.02 - Patient evaluated by his maintenance mgr Dr. Sanchez and per her orders - discontinue Cardizem drip and start patient on Amiodarone drip. Appreciate all recommendations. - Resume home dose of Eliquis - Resume home dose of Cardizem 180mg po daily and Metoprolol 25mg BID - continuous cardiac monitoring SBO - Patient initially refused NG tube placement, but is now agreeable. Place NG to LIWS. - NPO - Zofran as needed for N/V - Monitor for signs of improvement - Will consider GS consultation if patient fails to improve ANNETTE - likely due to dehydration - creatinine 1.46 - Hold home lisinopril dose for now - IVF - avoid nephrotoxic agents - obtain am labs to monitor trend CHF, not in acute exacerbation - CXR personally reviewed and no e/o active disease - BNP 556 - IV Lasix ordered by maintenance mgr - monitor electrolytes - Monitor for signs of fluid overload - Daily weights - Strict I's and O's Hypertension HLD - patient is borderline hypotensive at this time. - Hold home antihypertensives - Resume home statin therapy - monitor COPD, not in acute exacerbation - Resume home bronchodilator therapy - Duonebs prn - supplemental oxygen as needed Urinary retention - obtain PVR - patient will likely need urinary cath - UA pending specimen Constipation - no BM since Tuesday - initiate bowel regimen - monitor for BM DVT prophylaxis - patient is on Eliquis This note was transcribed by julio césar Carvajal PA-C. I, Dr. Eddie Domínguez personally performed the history, physical exam, and medical decision making; and confirmed the accuracy of the information in the transcribed note. Authenticated by Dr. Eddie Domínguez on 11/01/16 at 10:32. Discussed Condition With patient, daughter, ED physician and nursing staff Physician Certification 2 Midnight Certification Type: Admission for Inpatient Services Order for Inpatient Services The services are ordered in accordance with Medicare regulations or non- Medicare payer requirements, as applicable. In the case of services not specified as inpatient-only, they are appropriately provided as inpatient services in accordance with the 2-midnight benchmark. Estimated LOS (days): 3 3 days is the estimated time the patient will need to remain in the hospital, assuming treatment plan goals are met and no additional complications. Post-Hospital Plan: Not yet determined Shahnaz Carvajal Nov 01, 2016 09:00 Eddie Domínguez MD Nov 01, 2016 10:32
[2016-11-01] MEDS: FUROSEMIDE 20 MG/2 ML VIAL IV PUSH SCH ×2 (09:46→16:51)
--- NOTE | 2016-11-01 14:54 | EKG ---
Date Performed: 11/01/2016 Time Performed: 04:59:58 PTAGE: 81 years EKG: ATRIAL FIBRILLATION WITH RAPID VENTRICULAR RESPONSE MARKED LEFT AXIS DEVIATION MODERATE INT RAVENTRICULAR CONDUCTION DELAY MINIMAL VOLTAGE CRITERIA FOR LVH, CONSIDER NORMAL VARIANT ST DEVIATION AND MODERATE T-WAVE ABNORMALITY, CONSIDER LATERAL ISCHEMIA Compared to previous tracing rapid atrial fibrillation is new ABNORMAL ECG PREVIOUS TRACING : 08/04/16 DOCTOR: Ramon Gonzalez Interpretating Date/Time 11/01/2016 14:53:42
[2016-11-01] MEDS: METOPROLOL TARTRATE 25 MG TAB PO SCH (21:00)
[2016-11-01] MEDS: BUDESONIDE-FORMOTEROL 80/4.5 MCG INHALER INH SCH (21:00)
[2016-11-01] MEDS: APIXABAN 2.5 MG TABLET PO SCH (21:00)
[2016-11-02] VITALS (18 sets, daily range): BP systolic 105–141; BP diastolic 57–78; PULSE 63–83; RESP 18; TEMP 97.5–98; O2SAT 92–98
[2016-11-02] MEDS: SODIUM CHLOR 0.9% 1000 ML INJ 1,000 ML IV SCH ×2 (05:29→21:20)
[2016-11-02 08:30] LABS: AUTOMATED NEUTROPHIL # 3.2 TH/MM3 (1.8-7.7); BASOPHIL % 0.5 % (0.0-2.0); EOSINOPHIL # 0.1 TH/MM3 (0-0.4); EOSINOPHIL % 1.8 % (0.0-4.0); HEMATOCRIT 36.2 % (39.0-51.0); HEMO FLAGS DIFF FINAL; LYMPH % 15.7 % (9.0-44.0); LYMPHOCYTE # 0.8 TH/MM3 (1.0-4.8); MEAN CELL VOLUME 80.6 FL (80.0-100.0); MEAN CORPUSCULAR HEMOGLOBIN 25.4 PG (27.0-34.0); MEAN CORPUSCULAR HGB CONC 31.6 % (32.0-36.0); MONO % 16.3 % (0.0-8.0); NEUT % 65.7 % (16.0-70.0); PLATELET COUNT 156 TH/MM3 (150-450); RED BLOOD COUNT 4.49 MIL/MM3 (4.50-5.90); RED CELL DISTRIBUTION WIDTH 17.2 % (11.6-17.2); WHITE BLOOD COUNT 4.8 TH/MM3 (4.0-11.0)
[2016-11-02 08:50] LABS: BICARBONATE 33.1 MEQ/L (21.0-32.0)
[2016-11-02] MEDS: BUDESONIDE-FORMOTEROL 80/4.5 MCG INHALER INH SCH ×2 (09:00→21:31)
[2016-11-02] MEDS: APIXABAN 2.5 MG TABLET PO SCH (09:00)
[2016-11-02] MEDS ORDERED: DILTIAZEM-CD 180 MG CAP ER PO SCH (09:00)
[2016-11-02] MEDS: ATORVASTATIN 20 MG TAB PO SCH (09:25)
[2016-11-02] MEDS: MULTIVITAMIN-OPHTHALMIC 1 TAB PO SCH (09:25)
[2016-11-02] MEDS: FUROSEMIDE 20 MG/2 ML VIAL IV PUSH SCH (09:25)
[2016-11-02] MEDS: METOPROLOL TARTRATE 25 MG TAB PO SCH (09:25)
--- NOTE | 2016-11-02 10:06 | HHI.PR ---
Subjective Remarks Follow-up A. fib with RVR, small bowel obstruction. Patient states that he feels much better today. Denies chest pain or dyspnea. Nausea and vomiting have resolved as well. Patient wants the NG tube to be removed. He has had multiple bowel movements overnight. Objective Vitals Vital Signs Date Time Temp Pulse Resp B/P Pulse Ox O2 Delivery O2 Flow Rate FiO2 11/02/16 04:00 68 11/02/16 04:00 98.0 68 18 105/70 98 11/02/16 03:00 70 11/02/16 02:00 71 11/02/16 01:00 68 11/02/16 00:00 71 11/02/16 00:00 97.6 80 18 127/78 98 11/01/16 23:00 80 11/01/16 22:00 71 11/01/16 21:00 70 11/01/16 20:00 77 11/01/16 20:00 97.6 83 18 114/63 98 11/01/16 19:00 83 11/01/16 16:00 92 11/01/16 16:00 98.1 91 18 142/80 98 11/01/16 15:50 98 Nasal Cannula 2.00 11/01/16 15:00 90 11/01/16 14:00 88 11/01/16 13:00 90 11/01/16 12:00 93 11/01/16 12:00 98.6 91 16 126/69 97 11/01/16 11:00 124 I/O 11/01/16 11/01/16 11/01/16 11/02/16 11/02/16 11/02/16 07:00 15:00 23:00 07:00 15:00 23:00 Intake Total 1085 ml 920 ml Output Total 250 ml 400 ml 1200 ml Balance -250 ml 685 ml -280 ml Intake Oral 0 ml 0 ml IV Total 1085 ml 920 ml Output Urine Total 400 ml 1200 ml Gastric Drainage Total 0 ml Emesis 250 ml # Bowel Movements 2 1 Result Diagram: 11/02/16 0727 11/02/16 0727 Imaging Last Impressions Abdomen/Pelvis CT 11/01/16 0522 Signed Impressions: Service Date/Time: Tuesday, November 01, 2016 06:22 - CONCLUSION: 1. Abnormal bowel gas pattern of concern for distal small bowel obstruction. 2. No free air or fluid. 3. Mild diverticulosis. Enzo Lagn MD Chest X-Ray 11/01/16 0438 Signed Impressions: Service Date/Time: Tuesday, November 01, 2016 05:20 - CONCLUSION: No acute disease. Enzo Lang MD Objective Remarks General: Elderly male in no acute distress. NG tube in place. Heart: Irregular rhythm. No murmur. Lungs: Clear to auscultation bilaterally. No wheezes, rales, or rhonchi. Breathing is nonlabored. Abdomen: Soft, nontender, nondistended. Positive bowel sounds. Extremities: No lower extremity edema. Psych: Alert and oriented. Procedures None Urinary Catheter: No Vascular Central Line Catheter: No A/P Problem List: (1) Atrial fibrillation with RVR ICD Code: I48.91 Status: Acute (2) Small bowel obstruction ICD Code: K56.69 Status: Acute (3) Chronic systolic CHF (congestive heart failure) ICD Code: I50.22 Status: Chronic (4) Acute kidney injury ICD Code: N17.9 Status: Acute (5) Hypertension ICD Code: I10 Status: Chronic (6) Hyperlipidemia ICD Code: E78.5 Status: Chronic (7) COPD (chronic obstructive pulmonary disease) ICD Code: J44.9 Status: Chronic Assessment and Plan 1. Atrial fibrillation with RVR: Has been on Cardizem and amiodarone drips overnight. Cardizem being weaned. Heart rate well controlled in the 70s. Appreciate cardiology recommendations. 2. Small bowel obstruction: NG tube in place. Will clamp the NG tube and monitor for symptoms. Nausea and vomiting have improved. Patient has had multiple bowel movements overnight. Zofran as needed. 3. Acute kidney injury: Likely secondary to dehydration. Creatinine improving. Continue cautious IV fluid hydration. 4. Chronic systolic congestive heart failure: Appreciate cardiology recommendations. Continue Lasix. Strict intake/output. 5. COPD: Continue bronchodilators as needed. Continue supplemental oxygen. 6. DVT prophylaxis: Eliquis on hold. Subcutaneous heparin. Eddie Domínguez MD Nov 02, 2016 10:06
--- NOTE | 2016-11-02 10:49 | PD.CARD.PN ---
Subjective Subjective Remarks PT without complaints Objective Medications Current Medications Medications (Trade) Dose Ordered Sig/Maribel Route Start Time Stop Time Status Last Admin (NS 1000 ml Inj) 1,000 ml @ 70 mls/hr [id number] IV 11/01/16 05:15 11/02/16 05:29 (Zofran Inj) 4 mg Q6H PRN IVP 11/01/16 08:00 11/01/16 21:55 (Narcan Inj) 0.4 mg UNSCH PRN IV 11/01/16 08:00 (Milk Of Magnesia Liq) 30 ml Q12H PRN PO 11/01/16 08:00 (Senokot) 17.2 mg Q12H PRN PO 11/01/16 08:00 (Dulcolax Supp) 10 mg DAILY PRN RECTAL 11/01/16 08:00 Lactulose 30 ml 30 ml DAILY PRN PO 11/01/16 08:00 (Cordarone Inj/ D5W ([place]) Inj) 250 ml @ 0 mls/hr CONTINUOUS IV 11/01/16 08:00 11/01/16 09:47 (Lasix Inj) 20 mg BIDPC IV PUSH 11/01/16 09:00 11/02/16 09:25 (Eliquis) 2.5 mg BID PO 11/01/16 21:00 Hold (Lipitor) 20 mg DAILY PO 11/02/16 09:00 11/02/16 09:25 (Cardizem Cd) 180 mg DAILY PO 11/02/16 09:00 11/02/16 09:25 (Lopressor) 25 mg BID PO 11/01/16 21:00 11/02/16 09:25 (Symbicort 80-4.5 Mcg Inh) 2 puff BID INH 11/01/16 21:00 11/02/16 09:00 Vit C/Vit E/Zinc/ Copper/Lutein 1 tab 1 tab DAILY PO 11/02/16 09:00 11/02/16 09:25 (Cardizem Inj/NS Inj) 125 ml @ 0 mls/hr TITRATE IV 11/01/16 11:15 11/01/16 12:00 (Heparin Inj) 5,000 units Q12H SQ 11/02/16 11:00 Vital Signs / I&O Vital Signs Date Time Temp Pulse Resp B/P Pulse Ox O2 Delivery O2 Flow Rate FiO2 11/02/16 04:00 68 11/02/16 04:00 98.0 68 18 105/70 98 11/02/16 03:00 70 11/02/16 02:00 71 11/02/16 01:00 68 11/02/16 00:00 71 11/02/16 00:00 97.6 80 18 127/78 98 11/01/16 23:00 80 11/01/16 22:00 71 11/01/16 21:00 70 11/01/16 20:00 77 11/01/16 20:00 97.6 83 18 114/63 98 11/01/16 19:00 83 11/01/16 16:00 92 11/01/16 16:00 98.1 91 18 142/80 98 11/01/16 15:50 98 Nasal Cannula 2.00 11/01/16 15:00 90 11/01/16 14:00 88 11/01/16 13:00 90 11/01/16 12:00 93 11/01/16 12:00 98.6 91 16 126/69 97 11/01/16 11:00 124 I/O 11/01/16 11/01/16 11/01/16 11/02/16 11/02/16 11/02/16 07:00 15:00 23:00 07:00 15:00 23:00 Intake Total 1085 ml 920 ml Output Total 250 ml 400 ml 1200 ml Balance -250 ml 685 ml -280 ml Intake Oral 0 ml 0 ml IV Total 1085 ml 920 ml Output Urine Total 400 ml 1200 ml Gastric Drainage Total 0 ml Emesis 250 ml # Bowel Movements 2 1 Physical Exam GENERAL: Well developed, well nourished. No acute distress. HEENT: Jugular venous pressure is normal. CHEST: Lungs clear to auscultation bilaterally. Unlabored respiratory effort. CARDIAC: Regular rate and rhythm without S3, S4, or murmur. ABDOMEN: Soft, nontender, no hepatosplenomegaly. Bowel sounds present. EXTREMITIES: No clubbing, cyanosis, or edema. Laboratory Laboratory Tests Test 11/02/16 07:27 White Blood Count 4.8 TH/MM3 Red Blood Count 4.49 MIL/MM3 Hemoglobin 11.4 GM/DL Hematocrit 36.2 % Mean Corpuscular Volume 80.6 FL Mean Corpuscular Hemoglobin 25.4 PG Mean Corpuscular Hemoglobin 31.6 % Concent Red Cell Distribution Width 17.2 % Platelet Count 156 TH/MM3 Mean Platelet Volume 7.9 FL Neutrophils (%) (Auto) 65.7 % Lymphocytes (%) (Auto) 15.7 % Monocytes (%) (Auto) 16.3 % Eosinophils (%) (Auto) 1.8 % Basophils (%) (Auto) 0.5 % Neutrophils # (Auto) 3.2 TH/MM3 Lymphocytes # (Auto) 0.8 TH/MM3 Monocytes # (Auto) 0.8 TH/MM3 Eosinophils # (Auto) 0.1 TH/MM3 Basophils # (Auto) 0.0 TH/MM3 CBC Comment DIFF FINAL Differential Comment Sodium Level 142 MEQ/L Potassium Level 4.0 MEQ/L Chloride Level 103 MEQ/L Carbon Dioxide Level 33.1 MEQ/L Anion Gap 6 MEQ/L Blood Urea Nitrogen 29 MG/DL Creatinine 1.12 MG/DL Estimat Glomerular Filtration 63 ML/MIN Rate Random Glucose 107 MG/DL Calcium Level 8.4 MG/DL Assessment and Plan Assessment and Plan Atrial fibrillation - in NSR -d/c amio; continue PO meds -favor BB secondary to cardiomyopathy Cardiomyopathy - his baseline EF is about 30%. -d/c IV lasix and change to PO, add fouzia Small bowel obstruction - this will be managed by the primary team. Stacie Sanchez MD Nov 02, 2016 10:49
[2016-11-02] MEDS: HEPARIN SODIUM - SQ 10,000 UNITS/ML VIAL SQ SCH ×2 (11:42→21:18)
[2016-11-02] MEDS: METOPROLOL TARTRATE 50 MG TAB PO SCH (21:16)
[2016-11-03] VITALS: BP 115/55; PULSE 58; RESP 18; TEMP 99.3; O2SAT 90
[2016-11-03 04:00] VITALS: BP 108/59; PULSE 61; RESP 18; TEMP 98.7; O2SAT 92
--- NOTE | 2016-11-03 06:44 | PD.CARD.PN ---
Subjective Subjective Remarks Pt without complaints Objective Medications Current Medications Medications (Trade) Dose Ordered Sig/Maribel Route Start Time Stop Time Status Last Admin (NS 1000 ml Inj) 1,000 ml @ 70 mls/hr [id number] IV 11/01/16 05:15 11/02/16 21:20 (Zofran Inj) 4 mg Q6H PRN IVP 11/01/16 08:00 11/01/16 21:55 (Narcan Inj) 0.4 mg UNSCH PRN IV 11/01/16 08:00 (Milk Of Magnesia Liq) 30 ml Q12H PRN PO 11/01/16 08:00 (Senokot) 17.2 mg Q12H PRN PO 11/01/16 08:00 (Dulcolax Supp) 10 mg DAILY PRN RECTAL 11/01/16 08:00 (Lactulose Liq) 30 ml DAILY PRN PO 11/01/16 08:00 (Eliquis) 2.5 mg BID PO 11/01/16 21:00 Hold (Lipitor) 20 mg DAILY PO 11/02/16 09:00 11/02/16 09:25 (Symbicort 80-4.5 Mcg Inh) 2 puff BID INH 11/01/16 21:00 11/02/16 21:31 (Ocuvite) 1 tab DAILY PO 11/02/16 09:00 11/02/16 09:25 (Heparin Inj) 5,000 units Q12H SQ 11/02/16 11:00 11/02/16 21:18 (Cardizem Cd) 120 mg DAILY PO 11/03/16 09:00 (Lopressor) 50 mg BID PO 11/02/16 21:00 11/02/16 21:16 (Prinivil) 5 mg DAILY PO 11/03/16 09:00 Vital Signs / I&O Vital Signs Date Time Temp Pulse Resp B/P Pulse Ox O2 Delivery O2 Flow Rate FiO2 11/03/16 04:00 98.7 61 18 108/59 92 11/03/16 04:00 Room Air 11/03/16 00:15 21 11/03/16 00:00 99.3 58 18 115/55 90 11/03/16 00:00 Room Air 11/02/16 20:00 97.5 71 18 114/58 96 11/02/16 20:00 Room Air 11/02/16 20:00 69 11/02/16 18:05 77 11/02/16 17:02 66 11/02/16 16:50 96 Nasal Cannula 2.00 11/02/16 16:16 68 11/02/16 15:23 97.9 68 18 118/57 92 11/02/16 15:23 68 11/02/16 14:01 68 11/02/16 13:22 63 11/02/16 12:08 67 11/02/16 11:30 97.7 72 18 141/74 95 11/02/16 11:30 65 11/02/16 10:48 65 11/02/16 09:00 64 11/02/16 08:30 72 11/02/16 08:30 97.8 83 18 130/76 95 I/O 11/02/16 11/02/16 11/02/16 11/03/16 11/03/16 11/03/16 07:00 15:00 23:00 07:00 15:00 23:00 Intake Total 920 ml 1148 ml 475 ml Output Total 1200 ml 975 ml Balance -280 ml 173 ml 475 ml Intake Oral 0 ml 360 ml IV Total 920 ml 788 ml 475 ml Output Urine Total 1200 ml 975 ml Gastric Drainage Total 0 ml # Bowel Movements 1 0 Physical Exam GENERAL: Well developed, well nourished. No acute distress. HEENT: Jugular venous pressure is normal. CHEST: Lungs clear to auscultation bilaterally. Unlabored respiratory effort. CARDIAC: Regular rate and rhythm without S3, S4, or murmur. ABDOMEN: Soft, nontender, no hepatosplenomegaly. Bowel sounds present. EXTREMITIES: No clubbing, cyanosis, or edema. Laboratory Laboratory Tests Test 11/02/16 07:27 White Blood Count 4.8 TH/MM3 Red Blood Count 4.49 MIL/MM3 Hemoglobin 11.4 GM/DL Hematocrit 36.2 % Mean Corpuscular Volume 80.6 FL Mean Corpuscular Hemoglobin 25.4 PG Mean Corpuscular Hemoglobin 31.6 % Concent Red Cell Distribution Width 17.2 % Platelet Count 156 TH/MM3 Mean Platelet Volume 7.9 FL Neutrophils (%) (Auto) 65.7 % Lymphocytes (%) (Auto) 15.7 % Monocytes (%) (Auto) 16.3 % Eosinophils (%) (Auto) 1.8 % Basophils (%) (Auto) 0.5 % Neutrophils # (Auto) 3.2 TH/MM3 Lymphocytes # (Auto) 0.8 TH/MM3 Monocytes # (Auto) 0.8 TH/MM3 Eosinophils # (Auto) 0.1 TH/MM3 Basophils # (Auto) 0.0 TH/MM3 CBC Comment DIFF FINAL Differential Comment Sodium Level 142 MEQ/L Potassium Level 4.0 MEQ/L Chloride Level 103 MEQ/L Carbon Dioxide Level 33.1 MEQ/L Anion Gap 6 MEQ/L Blood Urea Nitrogen 29 MG/DL Creatinine 1.12 MG/DL Estimat Glomerular Filtration 63 ML/MIN Rate Random Glucose 107 MG/DL Calcium Level 8.4 MG/DL Assessment and Plan Assessment and Plan Atrial fibrillation - in NSR -d/c cardizem in favor BB of secondary to cardiomyopathy - restart eliquis Cardiomyopathy - his baseline EF is about 30%. -on BB, fouzia systolic heart failure -IV lasix yesterday am, none pm, start PO today Small bowel obstruction - this will be managed by the primary team. Stacie Sanchez MD Nov 03, 2016 06:44
[2016-11-03 08:29] LABS: AUTOMATED NEUTROPHIL # 2.6 TH/MM3 (1.8-7.7); EOSINOPHIL # 0.1 TH/MM3 (0-0.4); EOSINOPHIL % 2.3 % (0.0-4.0); HEMATOCRIT 35.7 % (39.0-51.0); HEMO FLAGS DIFF FINAL; LYMPH % 26.1 % (9.0-44.0); LYMPHOCYTE # 1.1 TH/MM3 (1.0-4.8); MEAN CELL VOLUME 80.8 FL (80.0-100.0); MEAN CORPUSCULAR HEMOGLOBIN 25.6 PG (27.0-34.0); MEAN CORPUSCULAR HGB CONC 31.7 % (32.0-36.0); MONO % 9.7 % (0.0-8.0); NEUT % 60.9 % (16.0-70.0); PLATELET COUNT 154 TH/MM3 (150-450); RED BLOOD COUNT 4.42 MIL/MM3 (4.50-5.90); RED CELL DISTRIBUTION WIDTH 17.4 % (11.6-17.2); WHITE BLOOD COUNT 4.3 TH/MM3 (4.0-11.0)
[2016-11-03 08:47] LABS: POTASSIUM 3.5 MEQ/L (3.5-5.1)
[2016-11-03] MEDS ORDERED: DILTIAZEM-CD 120 MG CAP ER PO SCH (09:00)
[2016-11-03] MEDS ORDERED: FUROSEMIDE 20 MG TAB PO SCH (09:00)
[2016-11-03] MEDS ORDERED: APIXABAN 5 MG TABLET PO SCH (09:00)
[2016-11-03] MEDS ORDERED: LISINOPRIL 5 MG TAB PO SCH (09:00)
[2016-11-03] MEDS ORDERED: POTASSIUM CHLORIDE 10 MEQ CONTROLLED RELEASE TAB PO SCH (09:00)
[2016-11-03] MEDS: ATORVASTATIN 20 MG TAB PO SCH (09:32)
[2016-11-03] MEDS: METOPROLOL TARTRATE 50 MG TAB PO SCH (09:34)
[2016-11-03] MEDS: MULTIVITAMIN-OPHTHALMIC 1 TAB PO SCH (09:34)
[2016-11-03] MEDS: BUDESONIDE-FORMOTEROL 80/4.5 MCG INHALER INH SCH (09:34)
[2016-11-03] MEDS: SODIUM CHLOR 0.9% 1000 ML INJ 1,000 ML IV SCH (11:38)
--- NOTE | 2016-11-03 11:58 | HHI.PR ---
Subjective Remarks Follow-up A. fib with RVR, small bowel obstruction. The patient states that he feels much better. He would like to go home today. Denies abdominal pain, nausea , vomiting. No chest pain or shortness of breath. States that he is tolerating clear liquid diet. He had a bowel movement again this morning. Objective Vitals Vital Signs Date Time Temp Pulse Resp B/P Pulse Ox O2 Delivery O2 Flow Rate FiO2 11/03/16 04:00 98.7 61 18 108/59 92 11/03/16 04:00 Room Air 11/03/16 00:15 21 11/03/16 00:00 99.3 58 18 115/55 90 11/03/16 00:00 Room Air 11/02/16 20:00 97.5 71 18 114/58 96 11/02/16 20:00 Room Air 11/02/16 20:00 69 11/02/16 18:05 77 11/02/16 17:02 66 11/02/16 16:50 96 Nasal Cannula 2.00 11/02/16 16:16 68 11/02/16 15:23 97.9 68 18 118/57 92 11/02/16 15:23 68 11/02/16 14:01 68 11/02/16 13:22 63 11/02/16 12:08 67 I/O 11/02/16 11/02/16 11/02/16 11/03/16 11/03/16 11/03/16 07:00 15:00 23:00 07:00 15:00 23:00 Intake Total 920 ml 1148 ml 475 ml Output Total 1200 ml 975 ml Balance -280 ml 173 ml 475 ml Intake Oral 0 ml 360 ml IV Total 920 ml 788 ml 475 ml Output Urine Total 1200 ml 975 ml Gastric Drainage Total 0 ml # Bowel Movements 1 0 Result Diagram: 11/03/1630 11/03/16729 Imaging Last Impressions Abdomen/Pelvis CT 11/01/16 0522 Signed Impressions: Service Date/Time: Tuesday, November 01, 2016 06:22 - CONCLUSION: 1. Abnormal bowel gas pattern of concern for distal small bowel obstruction. 2. No free air or fluid. 3. Mild diverticulosis. Enzo Lang MD Chest X-Ray 11/01/16 7438 Signed Impressions: Service Date/Time: Tuesday, November 01, 2016 05:20 - CONCLUSION: No acute disease. Enzo Lang MD Objective Remarks General: Elderly male in no acute distress. Sitting up in a chair. Heart: Irregular rhythm. No murmur. Lungs: Clear to auscultation bilaterally. No wheezes, rales, or rhonchi. Breathing is nonlabored. Abdomen: Soft, nontender, nondistended. Extremities: No lower extremity edema. Psych: Alert and oriented. Procedures None Urinary Catheter: No Vascular Central Line Catheter: No A/P Problem List: (1) Atrial fibrillation with RVR ICD Code: I48.91 Status: Acute (2) Small bowel obstruction ICD Code: K56.69 Status: Acute (3) Chronic systolic CHF (congestive heart failure) ICD Code: I50.22 Status: Chronic (4) Acute kidney injury ICD Code: N17.9 Status: Acute (5) Hypertension ICD Code: I10 Status: Chronic (6) Hyperlipidemia ICD Code: E78.5 Status: Chronic (7) COPD (chronic obstructive pulmonary disease) ICD Code: J44.9 Status: Chronic Assessment and Plan 1. Atrial fibrillation with RVR: Cardizem and amiodarone drips discontinued. Heart rate well controlled. Appreciate cardiology recommendations. Continue beta buck. Oral Cardizem discontinued. 2. Small bowel obstruction: Resolved. Nausea and vomiting have improved. Patient has had multiple bowel movements. Zofran as needed. Advance to heart healthy diet. 3. Acute kidney injury: Likely secondary to dehydration. Creatinine improving. Continue cautious IV fluid hydration. 4. Chronic systolic congestive heart failure: Appreciate cardiology recommendations. Continue Lasix. Strict intake/output. 5. COPD: Continue bronchodilators as needed. Continue supplemental oxygen. 6. DVT prophylaxis: Eliquis. Discharge Planning Possible discharge home later today if patient tolerates advanced diet. Eddie Domínguez MD Nov 03, 2016 11:58
[2016-11-03] MEDS ORDERED: APIX5TAB PO (14:45)
[2016-11-03] MEDS ORDERED: POTA-243 PO (14:45)
[2016-11-03] MEDS ORDERED: METO-309 PO (14:45)
[2016-11-03] MEDS ORDERED: LISI-519 PO (14:45)
[2016-11-03] MEDS ORDERED: FURO20TA PO (14:45)
--- NOTE | 2016-11-03 14:46 | HHI.DCPOC ---
Discharge Care Plan Diagnosis: (1) Acute kidney injury (2) Hypertension (3) COPD (chronic obstructive pulmonary disease) (4) Hyperlipidemia (5) Chronic systolic CHF (congestive heart failure) (6) Atrial fibrillation with RVR (7) Small bowel obstruction Goals to Promote Your Health * To prevent worsening of your condition and complications * To maintain your health at the optimal level Directions to Meet Your Goals Take your medications as prescribed Follow your dietary instruction Follow activity as directed Keep your appointments as scheduled Take your immunizations and boosters as scheduled If your symptoms worsen call your PCP, if no PCP go to Urgent Care Center or Emergency Room Smoking is Dangerous to Your Health. Avoid second hand smoke Call the 24-hour hour crisis hotline for domestic abuse at Eddie Domínguez MD Nov 03, 2016 14:46
[2016-11-03 15:57] VITALS: PULSE 81
== END 2016-11-03 16:10 | disposition home or self-care (01) | DRG 389 ==
LOC: NEPC 03:52 → NEDA 07:30 → HCIS 10:06 → N04A 11-02 18:30
PROVIDERS: ADMIT Family Medicine; ATTEND Family Medicine
DX: K56.60 Unspecified intestinal obstruction (principal); N17.9 Acute kidney failure, unspecified; I42.9 Cardiomyopathy, unspecified; I11.0 Hypertensive heart disease with heart failure; I48.91 Unspecified atrial fibrillation; J44.9 Chronic obstructive pulmonary disease, unspecified; E86.0 Dehydration; I50.22 Chronic systolic (congestive) heart failure; E78.5 Hyperlipidemia, unspecified; I25.10 Atherosclerotic heart disease of native coronary artery without angina pectoris; H91.90 Unspecified hearing loss, unspecified ear; R33.8 Other retention of urine; N40.1 Benign prostatic hyperplasia with lower urinary tract symptoms; Z87.891 Personal history of nicotine dependence; Z95.2 Presence of prosthetic heart valve; Z79.01 Long term (current) use of anticoagulants; Z95.1 Presence of aortocoronary bypass graft
CPT/HCPCS: 71010; 74177; 80048; 80053; 82550; 83880; 84443; 84484; 85025; 85610; 85730; 93005; 96374; 96375; J0282; J1644; J1940; J2405; J7030; J7060; Q9967